=== PATIENT | female | born 1950 | race Caucasian/White ===

== ENCOUNTER 2017-01-16 15:03 | Emergency (ER) | payer MEDICARE, OTHER ==
--- NOTE | 2017-01-16 15:20 | ED ---
General Adult HPI - General Stated complaint: Chest pain Time Seen by Provider: 01/16/17 15:10 Source: RN notes reviewed, old records reviewed - History of Present Illness Initial comments: This is a 66-year-old female to the ER for evaluation of chest pain. 4 days of chest pain that this time without chest pain. Patient states she remains a symptomatically at this time. Patient has no cardiac risk factors no prior history of heart disease no high blood pressure not questionable diabetes or shortness of breath nonsmoker no prior cardiac evaluation in emergency room for chest pain. - Related Data Home Medications Medication Instructions Recorded Confirmed Aspirin 81 mg PO HS 03/23/14 01/16/17 OXcarbazepine 1,200 mg PO HS 03/23/14 01/16/17 LORazepam [Ativan] 0.5 mg PO BID@0800,1400 04/04/15 01/16/17 Omeprazole [PriLOSEC] 40 mg PO DAILY@1400 04/04/15 01/16/17 buPROPion XL [Wellbutrin Xl] 300 mg PO DAILY 04/04/15 01/16/17 traZODone HCL [Desyrel] 50 mg PO DAILY@1400 04/04/15 01/16/17 traZODone HCL [Desyrel] 100 mg PO HS 04/04/15 01/16/17 Citalopram Hydrobromide [CeleXA] 20 mg PO DAILY 01/16/17 01/16/17 Dicyclomine [Bentyl] 10 mg PO QID 01/16/17 01/16/17 Diphenox-Atrop 2.5-0.025 mg 1 tab PO QID 01/16/17 01/16/17 [Lomotil] Loratadine [Claritin] 10 mg PO HS 01/16/17 01/16/17 Allergies Allergy/AdvReac Type Severity Reaction Status Date / Time No Known Allergies Allergy Verified 01/16/17 15:44 Review of Systems ROS Statement: Those systems with pertinent positive or pertinent negative responses have been documented in the HPI. ROS Other: All systems not noted in ROS Statement are negative. Past Medical History Past Medical History: GERD/Reflux Additional Past Medical History / Comment(s): hypotension, History of Any Multi-Drug Resistant Organisms: None Reported Past Surgical History: Appendectomy, Hernia Repair Past Anesthesia/Blood Transfusion Reactions: No Reported Reaction Past Psychological History: Anxiety, Depression Smoking Status: Current every day smoker Past Alcohol Use History: None Reported Past Drug Use History: None Reported - Past Family History Father Family Medical History: Cancer Brother(s) Family Medical History: Cancer Sister(s) Family Medical History: Cancer General Exam General appearance: alert, in no apparent distress, anxious Head exam: Present: atraumatic, normocephalic, normal inspection Eye exam: Present: normal appearance, PERRL, EOMI. Absent: scleral icterus, conjunctival injection, periorbital swelling ENT exam: Present: normal exam, mucous membranes moist Neck exam: Present: normal inspection. Absent: tenderness, meningismus, lymphadenopathy Respiratory exam: Present: normal lung sounds bilaterally. Absent: respiratory distress, wheezes, rales, rhonchi, stridor Cardiovascular Exam: Present: regular rate, normal rhythm, normal heart sounds. Absent: systolic murmur, diastolic murmur, rubs, gallop, clicks GI/Abdominal exam: Present: soft, normal bowel sounds. Absent: distended, tenderness, guarding, rebound, rigid Extremities exam: Present: normal inspection, full ROM, normal capillary refill. Absent: tenderness, pedal edema, joint swelling, calf tenderness Back exam: Present: normal inspection Neurological exam: Present: alert, oriented X3, CN II-XII intact Psychiatric exam: Present: normal affect, normal mood Skin exam: Present: warm, dry, intact, normal color. Absent: rash Course Vital Signs 01/16/17 01/16/17 01/16/17 15:18 16:20 16:35 Temperature 99.0 F 97 F L Pulse Rate 77 67 66 Respiratory 16 18 20 Rate Blood Pressure 105/67 112/59 100/56 O2 Sat by Pulse 96 97 96 Oximetry - Reevaluation(s) Reevaluation #1: Patient remains without chest pain or shortness of breath EKG Findings - EKG Comments: EKG Findings:: EKG shows normal sinus rhythm rate of 75, OH 144, QRS 90, QTC 428 Medical Decision Making - Medical Decision Making 66 female the ER for evaluation nonspecific symptoms,, chest pain and off for 3 days, 3-4 days at this time isn't dramatic, level is normal EKG is negative and troponin is negative, patient will be discharged home - Lab Data Result diagrams: 01/16/17 15:16 01/16/17 15:16 Lab Results 01/16/17 01/16/17 01/16/17 Range/Units 15:16 15:16 15:16 WBC 9.2 (3.8-10.6) k/uL RBC 3.99 (3.80-5.40) m/uL Hgb 11.9 (11.4-16.0) gm/dL Hct 35.3 (34.0-46.0) % MCV 88.7 (80.0-100.0) fL MCH 29.9 (25.0-35.0) pg MCHC 33.8 (31.0-37.0) g/dL RDW 14.5 (11.5-15.5) % Plt Count 313 (150-450) k/uL Neutrophils % 77 % Lymphocytes % 12 % Monocytes % 7 % Eosinophils % 2 % Basophils % 0 % Neutrophils # 7.0 (1.3-7.7) k/uL Lymphocytes # 1.1 (1.0-4.8) k/uL Monocytes # 0.6 (0-1.0) k/uL Eosinophils # 0.1 (0-0.7) k/uL Basophils # 0.0 (0-0.2) k/uL PT (9.0-12.0) sec INR (<1.1) APTT (22.0-30.0) sec Sodium 127 L (137-145) mmol/L Potassium 4.3 (3.5-5.1) mmol/L Chloride 93 L (98-107) mmol/L Carbon Dioxide 23 (22-30) mmol/L Anion Gap 11 mmol/L BUN 13 (7-17) mg/dL Creatinine 0.70 (0.52-1.04) mg/dL Est GFR (MDRD) Af Amer >60 (>60 ml/min/1.73 sqM) Est GFR (MDRD) Non-Af >60 (>60 ml/min/1.73 sqM) Glucose 101 H (74-99) mg/dL Calcium 9.1 (8.4-10.2) mg/dL Magnesium 1.8 (1.6-2.3) mg/dL Total Bilirubin 0.4 (0.2-1.3) mg/dL AST 26 (14-36) U/L ALT 34 (9-52) U/L Alkaline Phosphatase 86 (38-126) U/L Total Creatine Kinase 107 (30-135) U/L CK-MB (CK-2) 1.2 (0.0-2.4) ng/mL CK-MB (CK-2) Rel Index 1.1 Troponin I <0.012 (0.000-0.034) ng/mL Total Protein 6.9 (6.3-8.2) g/dL Albumin 4.2 (3.5-5.0) g/dL Lipase 70 (23-300) U/L 01/16/17 Range/Units 15:16 WBC (3.8-10.6) k/uL RBC (3.80-5.40) m/uL Hgb (11.4-16.0) gm/dL Hct (34.0-46.0) % MCV (80.0-100.0) fL MCH (25.0-35.0) pg MCHC (31.0-37.0) g/dL RDW (11.5-15.5) % Plt Count (150-450) k/uL Neutrophils % % Lymphocytes % % Monocytes % % Eosinophils % % Basophils % % Neutrophils # (1.3-7.7) k/uL Lymphocytes # (1.0-4.8) k/uL Monocytes # (0-1.0) k/uL Eosinophils # (0-0.7) k/uL Basophils # (0-0.2) k/uL PT 10.4 (9.0-12.0) sec INR 1.0 (<1.1) APTT 22.3 (22.0-30.0) sec Sodium (137-145) mmol/L Potassium (3.5-5.1) mmol/L Chloride (98-107) mmol/L Carbon Dioxide (22-30) mmol/L Anion Gap mmol/L BUN (7-17) mg/dL Creatinine (0.52-1.04) mg/dL Est GFR (MDRD) Af Amer (>60 ml/min/1.73 sqM) Est GFR (MDRD) Non-Af (>60 ml/min/1.73 sqM) Glucose (74-99) mg/dL Calcium (8.4-10.2) mg/dL Magnesium (1.6-2.3) mg/dL Total Bilirubin (0.2-1.3) mg/dL AST (14-36) U/L ALT (9-52) U/L Alkaline Phosphatase (38-126) U/L Total Creatine Kinase (30-135) U/L CK-MB (CK-2) (0.0-2.4) ng/mL CK-MB (CK-2) Rel Index Troponin I (0.000-0.034) ng/mL Total Protein (6.3-8.2) g/dL Albumin (3.5-5.0) g/dL Lipase (23-300) U/L - Radiology Data Radiology results: report reviewed (Chest x-ray is negative for acute disease), image reviewed Disposition Clinical Impression: Chest pain, Atypical chest pain Disposition: HOME SELF-CARE Condition: Good Instructions: Chest Pain (ED) Referrals: Carmina Mishra MD [Primary Care Provider] - 1-2 days Praveena Aiken MD [STAFF PHYSICIAN] - 1-2 days
[2017-01-16 15:35] LABS: Basophils % (A) 0 %; CH 30.4; CHCM 34.5; Eosinophils # (A) 0.1 k/uL (0-0.7); Eosinophils % (A) 2 %; HCT 35.3 % (34.0-46.0); HDW 2.35; HGB 11.9 gm/dL (11.4-16.0); Luc # (Auto) 0.27; Luc % (Auto) 3; Lymphocytes # (A) 1.1 k/uL (1.0-4.8); Lymphocytes % (A) 12 %; MCH 29.9 pg (25.0-35.0); MCHC 33.8 g/dL (31.0-37.0); MCV 88.7 fL (80.0-100.0); Mean Platelet Volume 7.1; Monocytes # (A) 0.6 k/uL (0-1.0); Monocytes % (A) 7 %; Neutrophils % (A) 77 %; RBC 3.99 m/uL (3.80-5.40); RDW 14.5 % (11.5-15.5); WBC 9.2 k/uL (3.8-10.6); WBC (Perox) 9.81
--- NOTE | 2017-01-16 15:39 | XR ---
EXAMINATION TYPE: XR chest 2V DATE OF EXAM: 01/16/2017 3:29 PM CLINICAL HISTORY: Chest pain today. TECHNIQUE: Frontal and lateral views of the chest are obtained. COMPARISON: Prior chest x-ray September 14, 2014. FINDINGS: There is chronic parenchymal change with new small right pleural effusion. There is associ ated patchy right basilar atelectasis. No pneumothorax is seen bilaterally. Elevated left hemidiaphra gm is redemonstrated. The cardiac silhouette size is mildly enlarged on current study. The osseous structures are demineralized. Exaggerated thoracic kyphosis is present. Old fracture posterior right seventh rib is redemonstrated. IMPRESSION: Chronic changes and mild cardiomegaly with new small right pleural effusion and associate d patchy right basilar atelectasis.
[2017-01-16 15:45] LABS: ALT 34 U/L (9-52); AST 26 U/L (14-36); Alkaline Phosphatase 86 U/L (38-126); Anion Gap 11 mmol/L; Blood Urea Nitrogen 13 mg/dL (7-17); Calcium 9.1 mg/dL (8.4-10.2); Carbon Dioxide 23 mmol/L (22-30); Chloride 93 mmol/L (98-107); Glucose 101 mg/dL (74-99); Magnesium 1.8 mg/dL (1.6-2.3); Non-African American GFR(MDRD) >60 (>60 ml/min/1.73 sqM); Potassium 4.3 mmol/L (3.5-5.1); Prothrombin Time 10.4 sec (9.0-12.0); Sodium 127 mmol/L (137-145); Total Bilirubin 0.4 mg/dL (0.2-1.3); Total Protein 6.9 g/dL (6.3-8.2)
[2017-01-16 15:46] LABS: Partial Thromboplastin Time 22.3 sec (22.0-30.0)
[2017-01-16 16:08] LABS: Creatine Kinase 107 U/L (30-135)
[2017-01-16 16:21] LABS: Creatine Kinase MB 1.2 ng/mL (0.0-2.4); Troponin I <0.012 ng/mL (0.000-0.034)
[2017-01-16 16:36] VITALS: BP 100/56; PULSE 66; RESP 20; TEMP 97
== END 2017-01-16 16:41 | disposition home or self-care (01) ==
LOC: EC 15:03
DX: R07.89 Other chest pain (principal); K21.9 Gastro-esophageal reflux disease without esophagitis; F41.9 Anxiety disorder, unspecified; F32.9 Major depressive disorder, single episode, unspecified; F17.200 Nicotine dependence, unspecified, uncomplicated; Z79.82 Long term (current) use of aspirin; Z79.899 Other long term (current) drug therapy
CPT/HCPCS: 36415; 71020; 80053; 82550; 82553; 83690; 83735; 84484; 85025; 85610; 85730; 93005; 99285

== ENCOUNTER → 2017-03-06 | Outpatient (CLI) | payer MEDICARE, OTHER ==
[2017-03-06 14:41] LABS: Basophils % (A) 0 %; CH 30.5; Eosinophils # (A) 0.1 k/uL (0-0.7); Eosinophils % (A) 3 %; HDW 2.31; Luc % (Auto) 3; Lymphocytes % (A) 24 %; MCH 29.9 pg (25.0-35.0); MCHC 34.2 g/dL (31.0-37.0); MCV 87.5 fL (80.0-100.0); Mean Platelet Volume 6.6; Monocytes # (A) 0.5 k/uL (0-1.0); Monocytes % (A) 13 %; Neutrophils # (A) 2.2 k/uL (1.3-7.7); Neutrophils % (A) 57 %; RBC 3.99 m/uL (3.80-5.40); RDW 14.3 % (11.5-15.5); WBC (Perox) 3.83
[2017-03-06 15:06] LABS: ALT 29 U/L (9-52); AST 24 U/L (14-36); Alkaline Phosphatase 101 U/L (38-126); Blood Urea Nitrogen 9 mg/dL (7-17); Calcium 8.8 mg/dL (8.4-10.2); Carbon Dioxide 26 mmol/L (22-30); Chloride 87 mmol/L (98-107); Cholesterol 184 mg/dL (<200); Glucose 82 mg/dL (74-99); HDL Cholesterol 81 mg/dL (40-60); Non-African American GFR(MDRD) >60 (>60 ml/min/1.73 sqM); Potassium 4.7 mmol/L (3.5-5.1); Total Bilirubin 0.4 mg/dL (0.2-1.3); Total Protein 6.8 g/dL (6.3-8.2); Triglycerides 59 mg/dL (<150)
[2017-03-06 15:07] LABS: Anion Gap 7 mmol/L
[2017-03-06 15:15] LABS: Sodium 120 mmol/L (137-145)
[2017-03-07 14:45] LABS: Gliadin AB IgA, Deaminated 3 UNITS (<20); Gliadin AB IgG, Deaminated 2 UNITS (<20)
== END | disposition home or self-care (01) ==
LOC: LABWHC1 13:03
PROVIDERS: ATTEND Internal Medicine Gastroenterology
DX: Z00.00 Encounter for general adult medical examination without abnormal findings (principal); K52.9 Noninfective gastroenteritis and colitis, unspecified
CPT/HCPCS: 36415; 80053; 80061; 83516; 84443; 85025

== ENCOUNTER 2017-03-07 16:41 | Observation (INO) | payer MEDICARE, OTHER ==
[2017-03-07] MEDS ORDERED: SODIUM CHLORIDE 0.9% 1,000 ML IV ONE (16:58)
--- NOTE | 2017-03-07 17:15 | ED ---
Recheck HPI - General Chief Complaint: Recheck/Abnormal Lab/Rx Stated Complaint: Abnormal Labs Time Seen by Provider: 03/07/17 16:56 Source: patient, RN notes reviewed Mode of arrival: ambulatory Limitations: no limitations - History of Present Illness Initial Comments: This is a pleasant 66-year-old female with chief complaint of feeling weak. She had labs yesterday by her GI specialist. They called her and told her that she needed to be seen. She had a low sodium of 120. Patient reports that she' s had this happen in the past. She states that she is getting over pneumonia and does have a mild cough at this time. Patient reports that overall she just generally feels tired. Patient states she has no chest pain, shortness of breath, nausea or vomiting. She reports she does have IBS, and reports intermittent abdominal cramping with diarrhea. She states she hasn't had anything recently.Patient denies any recent fever, chills, shortness of breath, chest pain, back pain, abdominal pain, nausea vomiting, numbness or tingling, dysuria or hematuria, constipation or diarrhea, headaches or visual changes, or any other current symptoms - Related Data Home Medications Medication Instructions Recorded Confirmed OXcarbazepine 1,200 mg PO HS 03/23/14 03/07/17 LORazepam [Ativan] 0.5 mg PO BID@0800,1400 04/04/15 03/07/17 Omeprazole [PriLOSEC] 40 mg PO DAILY@1400 04/04/15 03/07/17 buPROPion XL [Wellbutrin Xl] 300 mg PO DAILY 04/04/15 03/07/17 traZODone HCL [Desyrel] 100 mg PO HS 04/04/15 03/07/17 Citalopram Hydrobromide [CeleXA] 20 mg PO DAILY 01/16/17 03/07/17 Dicyclomine [Bentyl] 10 mg PO [facility] 01/16/17 03/07/17 Diphenox-Atrop 2.5-0.025 mg 1 tab PO [facility] 01/16/17 03/07/17 [Lomotil] Loratadine [Claritin] 10 mg PO HS 01/16/17 03/07/17 Aspirin EC [Ecotrin Low Dose] 81 mg PO 03/07/17 03/07/17 Multivitamins, Thera [Multivitamin 1 tab PO DAILY 03/07/17 03/07/17 (formulary)] traZODone HCL 50 mg PO DAILY@1400 03/07/17 03/07/17 Allergies Allergy/AdvReac Type Severity Reaction Status Date / Time No Known Allergies Allergy Verified 03/07/17 17:51 Review of Systems ROS Statement: Those systems with pertinent positive or pertinent negative responses have been documented in the HPI. ROS Other: All systems not noted in ROS Statement are negative. Past Medical History Past Medical History: GERD/Reflux Additional Past Medical History / Comment(s): hypotension, History of Any Multi-Drug Resistant Organisms: None Reported Past Surgical History: Appendectomy, Hernia Repair Past Anesthesia/Blood Transfusion Reactions: No Reported Reaction Past Psychological History: Anxiety, Depression Smoking Status: Current every day smoker Past Alcohol Use History: None Reported Past Drug Use History: None Reported - Past Family History Father Family Medical History: Cancer Brother(s) Family Medical History: Cancer Sister(s) Family Medical History: Cancer Mother Family Medical History: Dementia, Diabetes Mellitus, Osteoarthritis (OA), Thyroid Disorder General Exam - General Exam Comments Initial Comments: This is a pleasant 66-year-old female. No acute distress. Limitations: no limitations General appearance: alert, in no apparent distress Head exam: Present: atraumatic, normocephalic, normal inspection Eye exam: Present: normal appearance, PERRL, EOMI. Absent: scleral icterus, conjunctival injection, periorbital swelling ENT exam: Present: normal exam, mucous membranes moist Neck exam: Present: normal inspection. Absent: tenderness, meningismus, lymphadenopathy Respiratory exam: Present: normal lung sounds bilaterally. Absent: respiratory distress, wheezes, rales, rhonchi, stridor Cardiovascular Exam: Present: regular rate, normal rhythm, normal heart sounds. Absent: systolic murmur, diastolic murmur, rubs, gallop, clicks GI/Abdominal exam: Present: soft, normal bowel sounds. Absent: distended, tenderness, guarding, rebound, rigid Extremities exam: Present: normal inspection, full ROM, normal capillary refill. Absent: tenderness, pedal edema, joint swelling, calf tenderness Back exam: Present: normal inspection Neurological exam: Present: alert, oriented X3, CN II-XII intact Psychiatric exam: Present: normal affect, normal mood Skin exam: Present: warm, dry, intact, normal color. Absent: rash Course Vital Signs 03/07/17 03/07/17 16:43 19:21 Temperature 98.1 F 98.0 F Pulse Rate 64 74 Respiratory 18 18 Rate Blood Pressure 104/55 97/50 O2 Sat by Pulse 96 95 Oximetry Medical Decision Making - Medical Decision Making This is a pleasant 66-year-old female presenting to emergency Department with abnormal labs with hyponatremia with sodium of 120 yesterday. Patient was given IV normal saline 1 L bolus and started on 150ml/ hrs. Patient will be admitted at this time for IV rehydration. Patient reports that this has been an issue for her in the past. She states that she is recently getting over pneumonia. She states she has a mild cough but feels much better at this time. Chest x-ray also obtained, negative for any acute process. Patient agrees to admission. We'll consult Dr. Peña due to patient's reoccurring hyponatremia. - Lab Data Result diagrams: 03/07/17 17:25 03/07/17 17:25 Lab Results 03/07/17 03/07/17 Range/Units 17:25 17:25 WBC 4.8 (3.8-10.6) k/uL RBC 4.17 (3.80-5.40) m/uL Hgb 12.4 (11.4-16.0) gm/dL Hct 36.9 (34.0-46.0) % MCV 88.5 (80.0-100.0) fL MCH 29.7 (25.0-35.0) pg MCHC 33.6 (31.0-37.0) g/dL RDW 14.4 (11.5-15.5) % Plt Count 337 (150-450) k/uL Neutrophils % 56 % Lymphocytes % 23 % Monocytes % 14 % Eosinophils % 3 % Basophils % 1 % Neutrophils # 2.7 (1.3-7.7) k/uL Lymphocytes # 1.1 (1.0-4.8) k/uL Monocytes # 0.7 (0-1.0) k/uL Eosinophils # 0.1 (0-0.7) k/uL Basophils # 0.1 (0-0.2) k/uL Sodium 120 L* (137-145) mmol/L Potassium 4.6 (3.5-5.1) mmol/L Chloride 88 L (98-107) mmol/L Carbon Dioxide 26 (22-30) mmol/L Anion Gap 6 mmol/L BUN 9 (7-17) mg/dL Creatinine 0.56 (0.52-1.04) mg/dL Est GFR (MDRD) Af Amer >60 (>60 ml/min/1.73 sqM) Est GFR (MDRD) Non-Af >60 (>60 ml/min/1.73 sqM) Glucose 86 (74-99) mg/dL Calcium 8.7 (8.4-10.2) mg/dL Magnesium 1.9 (1.6-2.3) mg/dL Total Bilirubin 0.5 (0.2-1.3) mg/dL AST 37 H (14-36) U/L ALT 30 (9-52) U/L Alkaline Phosphatase 111 (38-126) U/L Total Protein 7.5 (6.3-8.2) g/dL Albumin 4.2 (3.5-5.0) g/dL - Radiology Data Radiology results: report reviewed Chest x-ray shows stable exam. No acute abdomen or maladies evident. Disposition Clinical Impression: Hyponatremia, Fatigue Disposition: ADMITTED IP TO THIS [facility] Condition: Stable Time of Disposition: 18:38
[2017-03-07] MEDS: SODIUM CHLORIDE 0.9% 1,000 ML IV SCH (17:24)
[2017-03-07 17:34] LABS: Basophils # (A) 0.1 k/uL (0-0.2); Basophils % (A) 1 %; CH 30.4; CHCM 34.5; Eosinophils # (A) 0.1 k/uL (0-0.7); Eosinophils % (A) 3 %; HCT 36.9 % (34.0-46.0); HDW 2.24; HGB 12.4 gm/dL (11.4-16.0); Luc # (Auto) 0.16; Luc % (Auto) 3; Lymphocytes # (A) 1.1 k/uL (1.0-4.8); Lymphocytes % (A) 23 %; MCH 29.7 pg (25.0-35.0); MCHC 33.6 g/dL (31.0-37.0); MCV 88.5 fL (80.0-100.0); Mean Platelet Volume 6.1; Monocytes # (A) 0.7 k/uL (0-1.0); Monocytes % (A) 14 %; Neutrophils # (A) 2.7 k/uL (1.3-7.7); Neutrophils % (A) 56 %; RBC 4.17 m/uL (3.80-5.40); RDW 14.4 % (11.5-15.5); WBC 4.8 k/uL (3.8-10.6); WBC (Perox) 4.84
--- NOTE | 2017-03-07 18:04 | XR ---
EXAMINATION TYPE: XR chest 2V DATE OF EXAM: 03/07/2017 5:45 PM COMPARISON: Prior chest x-ray 16 January 2017 HISTORY: Pain, hyponatremia TECHNIQUE: Frontal and lateral views of the chest are obtained. FINDINGS: There is no focal air space opacity, pleural effusion, or pneumothorax seen. The cardiac silhouette size is stable and likely enlarged, patient is rotated. Prominent lung volumes suggest u nderlying COPD. Bone mineralization is reduced. The osseous structures are intact. There are old heal ed rib fractures as on prior exam. The aorta is dense. IMPRESSION: Stable exam, no acute abnormalities evident.
[2017-03-07 18:17] LABS: ALT 30 U/L (9-52); AST 37 U/L (14-36); Alkaline Phosphatase 111 U/L (38-126); Anion Gap 6 mmol/L; Blood Urea Nitrogen 9 mg/dL (7-17); Calcium 8.7 mg/dL (8.4-10.2); Carbon Dioxide 26 mmol/L (22-30); Chloride 88 mmol/L (98-107); Glucose 86 mg/dL (74-99); Magnesium 1.9 mg/dL (1.6-2.3); Non-African American GFR(MDRD) >60 (>60 ml/min/1.73 sqM); Potassium 4.6 mmol/L (3.5-5.1); Total Bilirubin 0.5 mg/dL (0.2-1.3); Total Protein 7.5 g/dL (6.3-8.2)
[2017-03-07 18:20] LABS: Sodium 120 mmol/L (137-145)
[2017-03-07] MEDS ORDERED: NALOXONE 0.4 MG/ML 1 ML VIAL IV PRN (18:38)
[2017-03-07] MEDS ORDERED: KETOROLAC 30 MG/ML 1 ML VIAL IVP PRN (18:38)
[2017-03-07] MEDS ORDERED: IBUPROFEN 400 MG TAB PO PRN (18:38)
[2017-03-07] MEDS ORDERED: traZODone HCL 100 MG TAB PO SCH (21:15)
[2017-03-07] MEDS ORDERED: OXcarbazepine 300 MG TAB PO SCH (21:15)
[2017-03-07] MEDS ORDERED: ASPIRIN 81 MG CHEW PO SCH (21:15)
[2017-03-07] MEDS ORDERED: LORATADINE 10 MG TAB PO SCH (21:15)
[2017-03-07] MEDS: DICYCLOMINE 10 MG CAP PO SCH (21:46)
[2017-03-07] MEDS: DIPHENOX-ATROP 2.5-0.025 MG 1 EACH TAB PO SCH (21:46)
[2017-03-08 07:20] LABS: Anion Gap 5 mmol/L; Blood Urea Nitrogen 6 mg/dL (7-17); Carbon Dioxide 23 mmol/L (22-30); Chloride 101 mmol/L (98-107); Glucose 75 mg/dL (74-99); Non-African American GFR(MDRD) >60 (>60 ml/min/1.73 sqM); Potassium 4.5 mmol/L (3.5-5.1); Sodium 129 mmol/L (137-145)
[2017-03-08] MEDS: DIPHENOX-ATROP 2.5-0.025 MG 1 EACH TAB PO SCH ×2 (08:33→11:54)
[2017-03-08] MEDS: LORazepam 0.5 MG TAB PO SCH ×2 (08:33→14:13)
[2017-03-08] MEDS: DICYCLOMINE 10 MG CAP PO SCH ×2 (08:33→11:54)
[2017-03-08] MEDS: SODIUM CHLORIDE 0.9% 1,000 ML IV SCH ×2 (08:48→09:05)
[2017-03-08] MEDS ORDERED: SODIUM CHLORIDE 0.45% 1,000 ML IV SCH (10:15)
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
[2017-03-08 10:47] LABS: Uric Acid 1.5 mg/dL (3.7-7.4)
[2017-03-08] MEDS ORDERED: PANTOPRAZOLE 40 MG TABLET PO SCH (12:00)
[2017-03-08 14:31] LABS: Anion Gap 3 mmol/L; Blood Urea Nitrogen 7 mg/dL (7-17); Calcium 8.2 mg/dL (8.4-10.2); Carbon Dioxide 25 mmol/L (22-30); Chloride 101 mmol/L (98-107); Glucose 82 mg/dL (74-99); Non-African American GFR(MDRD) >60 (>60 ml/min/1.73 sqM); Potassium 4.4 mmol/L (3.5-5.1); Sodium 129 mmol/L (137-145)
[2017-03-08 16:01] VITALS: BP 118/64; PULSE 70; RESP 14; TEMP 98.2
--- NOTE | 2017-03-08 18:14 | HP ---
DATE OF ADMISSION: This dictation is both HISTORY AND PHYSICAL AND DISCHARGE SUMMARY. This patient is a very pleasant 66-year-old female who was sent in from primary care physician's clinic with hyponatremia. The patient's only symptoms are generalized weakness, which improved at this point of time. Patient was given IV fluids. Within 12 hours, patient's sodium went from 120 to 129 because of which Nephrology was consulted and patient was started on half-normal saline to avoid any complications like ( ) and patient wanted to be discharged today because of which I repeated sodium again which remains at 129. Patient is on 3 to 4 medications that can cause SIADH. Patient denied any nausea, vomiting, diarrhea. Patient appears to have hypovolemic hyponatremia, improved with IV fluids. Patient is on Celexa, trazodone, Trileptal and even anticholinergics like loratadine does have some anticholinergic properties including Bentyl and dicyclomine. Bentyl with anticholinergic properties can cause SIADH. As the patient improved with IV fluids, we believe it is secondary to hypovolemic hyponatremia and patient drinks about 3 cups of coffee and that may have contributed to her symptoms. I asked her to drink only one cup of coffee. Ideally the patient needs to stay one more day, as patient is insisting will go ahead and discharge the patient with repeat electrolytes and results to be faxed Dr. Anthony's clinic and PCP's clinic. Patient will follow with Dr. Anthony in 2 weeks. Patient has good urine output at this point of time. Patient denied any excessive fluid intake. Creatinine is at her baseline. REVIEW OF SYSTEMS: GENERAL: As described in HPI. HEENT: No recent visual problems or hearing problems. Denied any sore throat. CARDIOVASCULAR: No chest pain, orthopnea, PND, no palpitations, no syncope. PULMONARY: No shortness of breath, no cough, no hemoptysis. GASTROINTESTINAL: No diarrhea, no nausea, no vomiting, no abdominal pain. Normoactive bowel sounds. NEUROLOGICAL: No headaches, no weakness, no numbness. HEMATOLOGICAL: Denies any bleeding or petechiae. GENITOURINARY: Denies any burning micturition, frequency, or urgency. MUSCULOSKELETAL/RHEUMATOLOGICAL: Denies any joint pain, swelling, or any muscle pain. ENDOCRINE: Denies any polyuria or polydipsia. The rest of the 14 point review of systems is negative. PAST MEDICAL HISTORY: Significant for gastroesophageal reflux disease, hypotension, appendectomy, hernia repair and anxiety, depression. SOCIAL HISTORY: The patient smokes about 1 pack per day. Denied any alcohol abuse or any drug abuse. Quit alcohol about 3 to 4 years ago. FAMILY HISTORY: Mother had dementia, diabetes mellitus, osteoarthritis, hypothyroidism. Father had cancer. Brother had cancer. Sister had cancer. Nature of cancers unknown. Home medications include: 1. Oxcarbazepine. 2. Lorazepam . 3. Omeprazole. 4. Bupropion. 5. Trazodone. 6. Citalopram. 7. Dicyclomine. 8. Diphenoxylate atropine. 9. Loratadine. 10. Multivitamin. ALLERGIES: No known drug allergies. PHYSICAL EXAMINATION: Temperature 98.4, pulse of 61, respiratory rate of 16, blood pressure is 98/43, saturating at 95% on room air. GENERAL: The patient is alert and oriented x3, not in any acute distress. Well developed, well nourished. HEENT: Pupils are round and equally reacting to light. EOMI. No scleral icterus. No conjunctival pallor. Normocephalic, atraumatic. No pharyngeal erythema. No thyromegaly. CARDIOVASCULAR: S1 and S2 present. No murmurs, rubs, or gallops. PULMONARY: Chest is clear to auscultation, no wheezing or crackles. ABDOMEN: Soft, nontender, nondistended, normoactive bowel sounds. No palpable organomegaly. MUSCULOSKELETAL: No joint swelling or deformity. EXTREMITIES: No cyanosis, clubbing, or pedal edema. NEUROLOGICAL: Gross neurological examination did not reveal any focal deficits. SKIN: No rashes. LABORATORY DATA: CBC, CMP are abnormal for low sodium 120, which has come up to 129 and the repeat one is 129. The TSH, cortisol level essentially within normal limits. ASSESSMENT AND PLAN: 1. Possible hypovolemic hyponatremia and patient is on above mentioned medications that can cause syndrome of inappropriate antidiuretic hormone secretion, but patient mostly has hypovolemic hyponatremia for which patient was given IV fluids and patient will be discharged today with repeat electrolytes and cut down on caffeine. 2. Depression. 3. Hypotension chronically without any kidney problems without with any end-organ damage. Patient will be discharged today to follow with Dr. Carmina Mishra in 3 to [address] Anthony in one week. Repeat basic metabolic profile in about 3 days. This dictation is both H&P and discharge summary.
[2017-03-09] MEDS ORDERED: buPROPion XL 300 MG TAB.ER.24H PO SCH (09:00)
[2017-03-09] MEDS ORDERED: CITALOPRAM HYDROBROMIDE 20 MG TAB PO SCH (09:00)
== END 2017-03-08 15:30 | disposition home or self-care (01) ==
LOC: EC 16:41 → 3OBS 18:02
PROVIDERS: ADMIT Hospitalist; ATTEND Hospitalist
DX: E87.1 Hypo-osmolality and hyponatremia (principal); E86.1 Hypovolemia; K21.9 Gastro-esophageal reflux disease without esophagitis; R05 Cough; I95.9 Hypotension, unspecified; F41.9 Anxiety disorder, unspecified; F32.9 Major depressive disorder, single episode, unspecified; F17.200 Nicotine dependence, unspecified, uncomplicated; Z83.3 Family history of diabetes mellitus; K58.9 Irritable bowel syndrome, unspecified; Z79.82 Long term (current) use of aspirin; Z79.899 Other long term (current) drug therapy
CPT/HCPCS: 96361 ×2; 96360; 99284; 36415; 84300; 83930; 80053; 80048; 84443; 82533; 83735; 84550; 85025; 83935; 71020; G0378 ×2

== ENCOUNTER → 2017-03-11 | Outpatient (CLI) | payer MEDICARE, OTHER ==
[2017-03-11 12:52] LABS: Anion Gap 7 mmol/L; Blood Urea Nitrogen 8 mg/dL (7-17); Carbon Dioxide 26 mmol/L (22-30); Chloride 91 mmol/L (98-107); Glucose 86 mg/dL (74-99); Non-African American GFR(MDRD) >60 (>60 ml/min/1.73 sqM); Potassium 4.4 mmol/L (3.5-5.1); Sodium 124 mmol/L (137-145)
== END | disposition home or self-care (01) ==
LOC: LABWHC1 11:57
PROVIDERS: ATTEND Internal Medicine
DX: E87.1 Hypo-osmolality and hyponatremia (principal)
CPT/HCPCS: 36415; 80048

== ENCOUNTER → 2017-03-20 | Outpatient (CLI) | payer MEDICARE, OTHER ==
[2017-03-20 14:43] LABS: Chloride 88 mmol/L (98-107); Glucose 94 mg/dL (74-99)
[2017-03-20 14:44] LABS: Anion Gap 10 mmol/L; Blood Urea Nitrogen 7 mg/dL (7-17); Calcium 9.1 mg/dL (8.4-10.2); Carbon Dioxide 23 mmol/L (22-30); Non-African American GFR(MDRD) >60 (>60 ml/min/1.73 sqM); Potassium 4.1 mmol/L (3.5-5.1); Sodium 121 mmol/L (137-145)
== END | disposition home or self-care (01) ==
LOC: LABWHC1 14:07
PROVIDERS: ATTEND Family Medicine
DX: E87.1 Hypo-osmolality and hyponatremia (principal)
CPT/HCPCS: 36415; 80048

== ENCOUNTER 2017-03-21 20:33 | Inpatient (IN) | payer MEDICARE, OTHER ==
[2017-03-21] MEDS ORDERED: SODIUM CHLORIDE 0.9% 1,000 ML IV ONE (23:35)
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
[2017-03-22 00:22] LABS: Basophils % (A) 0 %; CH 30.6; CHCM 35.1; Eosinophils # (A) 0.2 k/uL (0-0.7); Eosinophils % (A) 3 %; HCT 33.4 % (34.0-46.0); HDW 2.46; Luc % (Auto) 1; Lymphocytes # (A) 1.5 k/uL (1.0-4.8); Lymphocytes % (A) 18 %; MCH 31.4 pg (25.0-35.0); MCHC 35.9 g/dL (31.0-37.0); MCV 87.5 fL (80.0-100.0); Monocytes # (A) 0.6 k/uL (0-1.0); Monocytes % (A) 8 %; Neutrophils # (A) 5.7 k/uL (1.3-7.7); Neutrophils % (A) 70 %; RBC 3.82 m/uL (3.80-5.40); RDW 14.1 % (11.5-15.5); WBC 8.1 k/uL (3.8-10.6); WBC (Perox) 7.79
[2017-03-22 01:28] LABS: Anion Gap 7 mmol/L; Calcium 7.9 mg/dL (8.4-10.2); Carbon Dioxide 19 mmol/L (22-30); Chloride 101 mmol/L (98-107); Glucose 77 mg/dL (74-99); Non-African American GFR(MDRD) >60 (>60 ml/min/1.73 sqM); Sodium 127 mmol/L (137-145); Total Bilirubin 0.4 mg/dL (0.2-1.3)
[2017-03-22 01:30] LABS: ALT 27 U/L (9-52); AST 33 U/L (14-36); Blood Urea Nitrogen 8 mg/dL (7-17); Potassium 4.5 mmol/L (3.5-5.1); Total Protein 5.8 g/dL (6.3-8.2)
[2017-03-22 01:31] LABS: Alkaline Phosphatase 87 U/L (38-126)
[2017-03-22] MEDS ORDERED: ACETAMINOPHEN TAB 325 MG TAB PO PRN (02:02)
[2017-03-22] MEDS ORDERED: MORPHINE SULFATE 4 MG/ML SYRINGE IV PRN (02:02)
[2017-03-22] MEDS ORDERED: ONDANSETRON 4 MG/2 ML VIAL IVP PRN (02:02)
[2017-03-22] MEDS ORDERED: NALOXONE 0.4 MG/ML 1 ML VIAL IV PRN (02:02)
[2017-03-22] MEDS ORDERED: HYDROcodone/APAP 5-325MG 1 EACH TAB PO PRN (02:02)
[2017-03-22 08:08] VITALS: BMI 21.1
[2017-03-22] MEDS: SODIUM CHLORIDE 0.9% 1,000 ML IV SCH ×3 (10:48→19:57)
[2017-03-22] MEDS: LORazepam 0.5 MG TAB PO SCH (14:51)
[2017-03-22 15:04] LABS: ALT 29 U/L (9-52); AST 20 U/L (14-36); Alkaline Phosphatase 80 U/L (38-126); Anion Gap 4 mmol/L; Blood Urea Nitrogen 5 mg/dL (7-17); Calcium 8.5 mg/dL (8.4-10.2); Carbon Dioxide 27 mmol/L (22-30); Chloride 104 mmol/L (98-107); Glucose 61 mg/dL (74-99); Non-African American GFR(MDRD) >60 (>60 ml/min/1.73 sqM); Potassium 4.3 mmol/L (3.5-5.1); Sodium 135 mmol/L (137-145); Total Bilirubin 0.3 mg/dL (0.2-1.3); Total Protein 5.8 g/dL (6.3-8.2)
[2017-03-22] MEDS: DIPHENOX-ATROP 2.5-0.025 MG 1 EACH TAB PO SCH ×2 (18:57→19:57)
[2017-03-22] MEDS: DICYCLOMINE 10 MG CAP PO SCH (19:56)
[2017-03-22] MEDS ORDERED: OXcarbazepine 300 MG TAB PO SCH (21:00)
[2017-03-22] MEDS ORDERED: ASPIRIN 81 MG CHEW PO SCH (21:00)
[2017-03-22] MEDS ORDERED: traZODone HCL 100 MG TAB PO SCH (21:00)
--- NOTE | 2017-03-22 23:15 | HP ---
DATE OF SERVICE: 03/22/2017 CHIEF COMPLAINT: Sent from PCP's office for hyponatremia. HISTORY OF PRESENT ILLNESS: Ms. Love is a 66-year-old female with a past medical history of GERD, tremors, bipolar disorder, who was sent in from her PCP's office, as she was found to have hyponatremia. Patient states that she has been feeling off balance and fatigued for the past 2 to 3 weeks, but she denied having any falls, denies having any loss of consciousness, headaches. She denies having any difficulty in breathing. No complaints of nausea, vomiting, abdominal pain, diarrhea or constipation. Except for fatigue and gait disturbance, she does not per se have any complaints. Systems of all 13 review of systems are done and negative except for the ones mentioned in the HPI. Past medical history is significant for GERD, bipolar disorder. ALLERGIES: No known drug allergies. Patient's home medications: 1. Oxcarbazepine 1200mg p.o. QHS 2. Omeprazole 40 mg p.o. daily. 3. Bupropion 300 mg p.o. daily. 4. Citalopram 20 mg p.o. daily. 5. Lomotil 1 tablet a.c. and q.h.s. p.r.n. for diarrhea. 6. Aspirin 81 mg p.o. daily. 7. Multivitamin 1 tablet p.o. daily. PAST SURGICAL HISTORY: Appendectomy and hernia repair. SOCIAL HISTORY: Current every day smoker. Occasional alcohol use. No intravenous drug abuse. FAMILY HISTORY: Positive for dementia and osteoarthritis, thyroid disorder in her mother and cancer in her brother and sister. On examination, patient's vital signs: Temperature 98.0 , heart rate 65, respiratory rate 16, blood pressure 105/60, saturating at 95% on room air. GENERAL: Patient appears to be in no acute distress. Resting tremors. HEAD: Atraumatic, nontraumatic. EYES: Pupils round and reactive to light. NECK: No JVD. No thyromegaly. CARDIOVASCULAR: S1, S2 heard. LUNGS: Breath sounds are positive with crackles. GI: Abdomen is soft, nontender. Bowel sounds positive. EXTREMITIES: No edema. No cyanosis. No clubbing. Peripheral pulses are felt. SOCIAL MEDIA ASSISTANT: Alert, awake and oriented x3. No focal neurologic deficits. She has resting tremors. PSYCHIATRIC: Appropriate mood and affect. SKIN: No rash. LABS: White count of 8.1, hemoglobin is 12, platelets of 336. Sodium is 127. Repeat is 135 after IV for hydration. Potassium 4.6, chloride 104, bicarb 27, BUN 5, creatinine 0.53. Albumin is 3.4 and total protein of 6.0 ASSESSMENT AND PLAN: 1. Hyponatremia, most likely drug-induced. The patient is on oxcarbazepine, which is known to cause hyponatremia, so it will be discontinued. I had a lengthy discussion with her daughter, who was at the bedside. She states that the medication is for her tremors and if she does not take it, her tremors are pretty bad, but I explained to her it might be the reason for her hyponatremia and we will find another alternative. 2. Resting tremors. 3. Gastroesophageal reflux disease. 4. Bipolar disorder. 5. Anxiety with depression. 6. Nicotine dependence. PLAN: The plan is to discontinue the patient off oxcarbazepine and continue with IV hydration. Sodium is improving from 127 to 135. Patient is also stating that her symptom of gait imbalance is getting better. Will continue the rest of her home medications and further recommendations depending on the progress of the patient. MARTINE
[2017-03-23] MEDS: SODIUM CHLORIDE 0.9% 1,000 ML IV SCH ×2 (03:40→08:06)
[2017-03-23 07:19] LABS: Basophils % (A) 0 %; CH 29.8; CHCM 33.1; Eosinophils # (A) 0.1 k/uL (0-0.7); Eosinophils % (A) 2 %; HCT 34.3 % (34.0-46.0); HDW 2.47; HGB 11.4 gm/dL (11.4-16.0); Luc # (Auto) 0.06; Luc % (Auto) 2; Lymphocytes # (A) 0.9 k/uL (1.0-4.8); Lymphocytes % (A) 23 %; MCHC 33.1 g/dL (31.0-37.0); MCV 90.5 fL (80.0-100.0); Mean Platelet Volume 6.7; Monocytes # (A) 0.4 k/uL (0-1.0); Monocytes % (A) 10 %; Neutrophils # (A) 2.4 k/uL (1.3-7.7); Neutrophils % (A) 63 %; RBC 3.79 m/uL (3.80-5.40); RDW 14.4 % (11.5-15.5); WBC 3.9 k/uL (3.8-10.6); WBC (Perox) 3.96
[2017-03-23 07:31] LABS: Anion Gap 8 mmol/L; Blood Urea Nitrogen 5 mg/dL (7-17); Calcium 8.5 mg/dL (8.4-10.2); Carbon Dioxide 23 mmol/L (22-30); Chloride 106 mmol/L (98-107); Glucose 81 mg/dL (74-99); Non-African American GFR(MDRD) >60 (>60 ml/min/1.73 sqM); Potassium 3.8 mmol/L (3.5-5.1); Sodium 137 mmol/L (137-145)
[2017-03-23] MEDS: DIPHENOX-ATROP 2.5-0.025 MG 1 EACH TAB PO SCH ×2 (08:03→14:12)
[2017-03-23] MEDS: DICYCLOMINE 10 MG CAP PO SCH ×2 (08:04→14:11)
[2017-03-23] MEDS: LORazepam 0.5 MG TAB PO SCH ×2 (08:06→14:11)
[2017-03-23] MEDS ORDERED: buPROPion XL 300 MG TAB.ER.24H PO SCH (09:00)
[2017-03-23] MEDS ORDERED: traZODone HCL 50 MG TAB PO SCH (13:30)
--- NOTE | 2017-03-23 13:48 | DS ---
DATE OF ADMISSION: 03/22/2017 DATE OF DISCHARGE: HOSPITAL COURSE: Ms. Love is a 66-year-old female with a past medical history of GERD, tremors, bipolar disorder who is sent from her PCP's office as she was found to have hyponatremia. Patient was found to have a sodium of 127 at the time of admission. She was given IV fluids after which her sodium bumped up to 137 and currently it is 135. Patient was having balance issues and was feeling fatigued for the past 2 to 3 weeks. She denies having any falls, loss of consciousness or headaches. The patient's Oxcarbazepine have been discontinued, which is known to cause hyponatremia. The patient patient's daughter states that she takes this medication for her tremors but it was explained to her daughter that this medication can cause hyponatremia and so it will be discontinued for now. She can follow up with her psychiatric and her PCP for further management of her tremors with other medications. Patient is back to her baseline and she does not have any active complaints. She is being discharged home in stable condition. DISCHARGE DIAGNOSES: 1. Hyponatremia secondary to likely drug-induced due to oxcarbazepine. 2. Resting tremors. 3. Gastroesophageal reflux disease. 4. Bipolar disorder. 5. Anxiety/depression. 6. Nicotine dependence. DISCHARGE MEDICATIONS: 1. Ativan 0.5 mg p.o. b.i.d. 2. Omeprazole 40 mg p.o. daily. 3. Wellbutrin XL 300 mg p.o. daily. 4. Citalopram 20 mg p.o. daily. 5. Lomotil 1 tablet p.o. a.c. q.h.s. for on diarrhea. 6. Aspirin 81 mg p.o. q.h.s. 7. Multivitamin 1 tablet p.o. daily. 8. Bentyl 10 mg p.o. 4 times a day. 9. Trazodone 50 mg at lunch, and 100 mg at bedtime. Follow-up: The patient is advised to follow up her PCP Dr. Carmina Randall in 1 to 2 days and with her. Psychiatrist within two to three days. Discharge recommendations: The patient is advised to stop taking oxcarbazepine. Patient is being discharged home with her daughter in stable condition.
[2017-03-23] MEDS ORDERED: PANTOPRAZOLE 40 MG TABLET PO SCH (14:00)
[2017-03-23 14:09] VITALS: BP 137/70; PULSE 70; RESP 16; TEMP 98.6
== END 2017-03-23 14:47 | disposition home or self-care (01) | DRG 641 ==
LOC: EC 20:33 → 5MS5E 03-22 02:02 → 3SUR 03-22 06:16
PROVIDERS: ADMIT Internal Medicine; ATTEND Internal Medicine
DX: E87.1 Hypo-osmolality and hyponatremia (principal); F31.9 Bipolar disorder, unspecified; T42.1X5A Adverse effect of iminostilbenes, initial encounter; K21.9 Gastro-esophageal reflux disease without esophagitis; R25.1 Tremor, unspecified; R26.9 Unspecified abnormalities of gait and mobility; F17.200 Nicotine dependence, unspecified, uncomplicated; F41.9 Anxiety disorder, unspecified; R53.1 Weakness; R53.83 Other fatigue; Z90.49 Acquired absence of other specified parts of digestive tract; Z80.9 Family history of malignant neoplasm, unspecified; Z79.899 Other long term (current) drug therapy; Z79.82 Long term (current) use of aspirin; Z83.3 Family history of diabetes mellitus; Z81.8 Family history of other mental and behavioral disorders; Z83.49 Family history of other endocrine, nutritional and metabolic diseases; Z86.79 Personal history of other diseases of the circulatory system; Z91.5 Personal history of self-harm; Z91.410 Personal history of adult physical and sexual abuse; Z86.010 Personal history of colon polyps; Z87.81 Personal history of (healed) traumatic fracture
CPT/HCPCS: 36415; 80048; 80053; 85025

== ENCOUNTER → 2017-05-30 | Outpatient (CLI) | payer MEDICARE, OTHER ==
--- NOTE | 2017-05-30 12:23 | FL ---
EXAMINATION TYPE: FL barium swallow DATE OF EXAM ORDERED: 05/30/2017 12:15 PM HISTORY: Dysphagia and heartburn. COMPARISON: None. FINDINGS: The patient had some difficulty cooperating with the exam. The study was essentially a sin gle contrast study. The esophagus distended normally with barium without evidence of obstructing or constricting disease. There is mild cricopharyngeal achalasia. There is evidence of presbyesophagus. The GE junction has a n unusual appearance and this is presumably due to previous hiatal hernia repair. No hiatal hernia se en at this time. IMPRESSION: 1. MILD CRICOPHARYNGEAL ACHALASIA. 2. PRESBYESOPHAGUS. 3. POSTSURGICAL CHANGE.
[2017-05-30 12:40] LABS: Potassium 4.2 mmol/L (3.5-5.1)
== END | disposition home or self-care (01) ==
LOC: RADFLWHC 11:08
PROVIDERS: ATTEND Internal Medicine Gastroenterology
DX: K22.8 Other specified diseases of esophagus (principal); J39.2 Other diseases of pharynx; G40.909 Epilepsy, unspecified, not intractable, without status epilepticus; E87.1 Hypo-osmolality and hyponatremia; Z98.890 Other specified postprocedural states
CPT/HCPCS: 74220; 80051; 80164

== ENCOUNTER → 2017-12-11 | Outpatient (CLI) | payer MEDICARE, OTHER ==
--- NOTE | 2017-12-11 14:24 | BD ---
EXAMINATION TYPE: MG DEXA axial skeleton. DATE OF EXAM: 12/11/2017 COMPARISON: DEXA bone scan September 14, 2014 CLINICAL HISTORY: Postmenopausal female Height: 60 Weight: 99.2 FRAX RISK QUESTIONS: Alcohol (3 or more units per day): no Family History (Parent hip fracture): no Glucocorticoids (More than 3mos): no (Ex: prednisone, prednisolone, methylprednisolone, dexamethasone, and hydrocortisone). History of Fracture in Adulthood: no Secondary Osteoporosis: 1. Type 1 Diabetes: no 2. Hyperthyroidism: no 3. Menopause before 45: no 4. Malnutrition: no 5. Chronic liver disease: no Rheumatoid Arthritis: no Current Tobacco Use: yes RISK FACTORS HISTORY OF: Surgery to Spine/Hip(right/left)/Wrist (right/left): no Family History of Osteoporosis: no Active: sometimes Diet low in dairy products/other sources of calcium: no Postmenopausal woman: age 48 Lost more than 2 inches in height since high school: no Frequent falls: no Poor Health: no Hyperparathyroidism: no Adrenal Insufficiency: no MEDICATIONS: citalopram, bupropion, omeprazole, lorazepam, keppra, trazodone, halobetasol propionate, Prednisone or other steroids: yes/ fluocinonide Additional History: EXAM MEASUREMENTS: Bone mineral densitometry was performed using the [employer] System. Bone mineral density as measured about the Lumbar spine is: ----- L1-L4(G/cm2): 0.677 T Score Values are as follows: ----- L2: -4.1 ----- L3: -4.4 ----- L4: -4.3 ----- L1-L4: -4.2 Bone mineral density has: decreased -9.5 % since study of: 09.14.2014 Bone mineral density about the R hip (g/cm2): 0.591 Bone mineral density about the L hip (g/cm2): 0.610 T Score values are as follows: -----R Neck: -3.2 -----L Neck: -3.1 -----R Total: -3.1 -----L Total: -3.2 Bone mineral density has: decreased -11.2 % since study of: 09.14.2014 IMPRESSION: Osteoporosis (T Score less than -2.5) as noted by T Score values at the low back and both hips persis t. Bone density is decreased or diminished from prior. There remains increased fracture risk and therapy is usually indicated based on age. Re-Screen 1-2 years. NOTE: T-SCORE=SD OF THE YOUNG ADULT MEAN.
--- NOTE | 2017-12-12 09:17 | MM ---
Reason for exam: screening (asymptomatic). Last mammogram was performed 3 years and 3 months ago. History: Patient is postmenopausal. Family history of breast cancer in sister. Benign core biopsy of the left breast. Physical Findings: A clinical breast exam by your physician is recommended on an annual basis and results should be correlated with mammographic findings. MG 3D Screening Mammo W/Cad Bilateral CC and MLO view(s) were taken. Prior study comparison: September 14, 2014, bilateral MG screening mammo w CAD. August 11, 2013, bilateral digital screening mammo w/CAD. The breast tissue is heterogeneously dense. This may lower the sensitivity of mammography. There is no discrete abnormality. No significant changes when compared with prior studies. ASSESSMENT: Negative, BI-RAD 1 RECOMMENDATION: Routine screening mammogram of both breasts in 1 year.
== END | disposition home or self-care (01) ==
LOC: RADMAMWWP 12:59
PROVIDERS: ATTEND Family Medicine
DX: Z12.31 Encounter for screening mammogram for malignant neoplasm of breast (principal); M81.0 Age-related osteoporosis without current pathological fracture; Z78.0 Asymptomatic menopausal state
CPT/HCPCS: 77063; 77067; 77080

== ENCOUNTER → 2018-06-11 | Outpatient (CLI) | payer MEDICARE, OTHER ==
--- NOTE | 2018-06-11 13:50 | CT ---
EXAMINATION TYPE: CT chest w con DATE OF EXAM: 06/11/2018 COMPARISON: NONE HISTORY: Cough CT DLP: 308 mGycm. Automated Exposure Control for Dose Reduction was Utilized. TECHNIQUE: CT scan of the thorax is performed following with IV Contrast, patient injected with 100 ml mL of Isovue 300. FINDINGS: LUNGS: There is moderate background centrilobular emphysematous change. Multifocal bandlike areas of pleural-parenchymal scarring are seen. There is pulmonary hyperinflation and increased anterior poste rior diameter of the chest compatible with underlying COPD. No focal consolidation or pulmonary mass is present. Main tracheobronchial tree is patent The lungs are grossly clear, there is no concerning parenchymal mass or nodule identified. There is no pleural effusion or pneumothorax seen. The trac heobronchial tree is patent. MEDIASTINUM: There are no greater than 1 cm hilar or mediastinal lymph nodes. No pericardial effusi on is seen. Mild coronary artery calcifications are seen. OTHER: There is postsurgical change of the gastroesophageal junction with small hiatal hernia. Slight thickening of the left adrenal gland is incidentally noted, which may relate to underlying adrenal g land hyperplasia. Old healed left lateral rib fractures are present. Large Schmorl's node is seen of the superior endplate of T12. IMPRESSION: Moderate centrilobular pulmonary emphysema. No focal consolidation or acute process withi n the chest. No pulmonary mass.
== END | disposition home or self-care (01) ==
LOC: RADCTMAIN 12:16
PROVIDERS: ATTEND Family Medicine
DX: J43.2 Centrilobular emphysema (principal)
CPT/HCPCS: 82565; 84520; 71260; 36415; Q9967

== ENCOUNTER 2018-12-25 08:45 | Day surgery (SDC) | payer MEDICARE, OTHER ==
[2018-12-22 14:19] VITALS: BMI 20.7
[2018-12-25 09:11] VITALS: TEMP 97.6
[2018-12-25] MEDS ORDERED: LIDOCAINE 1% 20 ML VIAL (10MG/ML) FOR IV START INTRADERMA ONE (09:16)
[2018-12-25] MEDS ORDERED: LACTATED RINGERS 1,000 ML IV ONE (09:16)
[2018-12-25] MEDS ORDERED: PROPOFOL 10 MG/ML 20 ML VIAL IV ONE (09:36)
--- NOTE | 2018-12-25 10:06 | P.PCN ---
Date of Procedure: 12/25/18 Procedure(s) Performed: BRIEF HISTORY: Patient is a 60-year-old, pleasant, white female, scheduled for an upper endoscopy as a part of evaluation of atypical chest pain for the last 6 months duration. Recently was started on Prilosec 20 mg twice daily and feeling better. She is scheduled for an upper endoscopy to rule out reflux disease. PROCEDURE PERFORMED: Esophagogastroduodenoscopy with biopsy. PREOPERATIVE DIAGNOSIS: Atypical chest pain. IV sedation per anesthesia. PROCEDURE: After informed consent was obtained, the patient was brought into the endoscopy unit. IV sedation was administered by Anesthesia under continuous monitoring. Initially the Olympus GIF-140 video endoscope was inserted into the mouth. Esophagus intubated without any difficulty. It was gradually advanced into the stomach and duodenum and carefully examined. The bulb and the second part of the duodenum appeared normal. The scope at this time was withdrawn to the stomach, adequately insufflated with air, and upon careful examination, mucosa of the antrum, had mild gastritis and biopsies were done from this area. The body, cardia and the fundus appeared normal. On retroflexion there was evidence of previous hiatal hernia surgery seen. The scope was then withdrawn into the esophagus. The GE junction was located at 35 cm from the incisors. Small paraesophageal hiatal hernia noted. The esophagus appeared normal. There were no erosions or ulcerations seen and the patient tolerated the procedure well. IMPRESSION: 1. Small paraesophageal hiatal hernia but no evidence of esophagitis. 2. Mild antral gastritis. RECOMMENDATIONS: The findings of this examination were discussed with the patient is a family. She was advised to follow with the biopsy results. She will continue with Prilosec 20 mg twice daily and she'll be seen in office in 6 weeks..
[2018-12-25 10:10] VITALS: RESP 18
[2018-12-25 11:05] VITALS: BP 110/69; PULSE 63
== END 2018-12-25 11:27 | disposition home or self-care (01) ==
LOC: ORWHC2ENDO 08:45
PROVIDERS: ATTEND Internal Medicine Gastroenterology
DX: K21.9 Gastro-esophageal reflux disease without esophagitis (principal); K29.50 Unspecified chronic gastritis without bleeding; K44.9 Diaphragmatic hernia without obstruction or gangrene; I73.9 Peripheral vascular disease, unspecified; F17.210 Nicotine dependence, cigarettes, uncomplicated; R56.9 Unspecified convulsions; Z79.1 Long term (current) use of non-steroidal anti-inflammatories (NSAID); Z79.82 Long term (current) use of aspirin; Z79.899 Other long term (current) drug therapy
CPT/HCPCS: 88305; 43239; J2704

== ENCOUNTER → 2019-09-14 | Outpatient (CLI) | payer MEDICARE, OTHER ==
--- NOTE | 2019-09-14 14:34 | US ---
EXAMINATION TYPE: US kidneys/renal and bladder DATE OF EXAM: 09/14/2019 COMPARISON: NONE CLINICAL HISTORY: R31.9 Hematuria. Hematuria. EXAM MEASUREMENTS: Right Kidney: 8 7 x 3.4 x 4.3 cm Left Kidney: cm Right Kidney: Dilated renal pelvis 1.1 x 2.0 x 1.1 cm. Left Kidney: 8.3 x 3.5 x 3.0 cm Bladder: Not fully distended. Bilateral Jets seen: No Mild pelvic caliectasis on the right with no hydronephrosis on the left. No nephrolithiasis. Bladder limited by incomplete distention IMPRESSION: 1. Very mild pelvic caliectasis on the right without evidence of overt hydronephrosis. There is no ev idence of nephrolithiasis.
== END | disposition home or self-care (01) ==
LOC: RADUSWWP 12:52
PROVIDERS: ATTEND Family Medicine
DX: N28.89 Other specified disorders of kidney and ureter (principal)
CPT/HCPCS: 76770

== ENCOUNTER → 2019-10-20 | Outpatient (CLI) | payer MEDICARE, OTHER ==
--- NOTE | 2019-10-20 17:27 | CT ---
EXAMINATION TYPE: CT urogram wo/w con DATE OF EXAM: 10/20/2019 COMPARISON: None HISTORY: hematuria for [address] DLP: 705.7 mGycm Automated exposure control for dose reduction was used. CONTRAST: Performed with IV Contrast, patient injected with 100 mL of Isovue 370. TECHNIQUE: Axial images 5 mm thick sections. Reconstructed images performed on a separate computer by the technologist. Three-D reconstructed images of the renal collecting system was performed FINDINGS: Note is made of a superior endplate compression deformity of L1 which may be superimposed on a Schmor l's node. Hepatomegaly is present. This could be due to a Koby's lobe. Portion of liver and spleen visualized is unremarkable. Vascular calcifications within the aorta. Inferior vena cava is normal. Gallbladder is unremarkable. Pancreas is normal. Adrenal glands are normal. Noncontrast imaging through the kidneys appears normal. Following contrast administration no masses c ysts or hydronephrosis within the kidneys is evident. The renal pelves appear normal. Reconstructed images of the kidneys ureter and bladder are performed. There is prominence of the bila teral ureters hydroureter within the proximal ureters is present. This appears to extend towards the urinary bladder. Urinary bladder fills normally without intraluminal or extramural defects. IMPRESSION: BILATERAL HYDROURETER OF INDETERMINATE ETIOLOGY. THERE IS SOME MILD PROMINENCE OF THE EXTRARENAL PELV ES ALTHOUGH THE RENAL CALYCES AND INFUNDIBULUM APPEAR NORMAL WITHIN THE KIDNEYS.
== END | disposition home or self-care (01) ==
LOC: RADCTMAIN 12:29
PROVIDERS: ATTEND Urology
DX: N13.4 Hydroureter (principal)
CPT/HCPCS: 82565; 84520; 74178; 36415; 74400; Q9967

== ENCOUNTER → 2019-11-11 | Outpatient (CLI) | payer MEDICARE, OTHER ==
--- NOTE | 2019-11-11 12:41 | MM ---
Reason for exam: clinical finding. Last mammogram was performed 1 year and 11 months ago. History: Patient is postmenopausal. Family history of breast cancer in sister. Benign core biopsy of the left breast. Indicated problem(s): pain in both breasts. Physical Findings: Nurse did not find any significant physical abnormalities on exam. MG 3D Diag Mammo W/Cad TERESA Bilateral CC and MLO view(s) were taken. Prior study comparison: December 11, 2017, bilateral MG 3d screening mammo w/cad. September 14, 2014, bilateral MG screening mammo w CAD. The breast tissue is heterogeneously dense. This may lower the sensitivity of mammography. No suspicious abnormality. Left biopsy marker noted. These results were verbally communicated with the patient and result sheet given to the patient on 11/11/19. ASSESSMENT: Negative, BI-RAD 1 RECOMMENDATION: Routine screening mammogram of both breasts in 1 year.
== END | disposition home or self-care (01) ==
LOC: RADMAMWWP 10:56
PROVIDERS: ATTEND Family Medicine
DX: N64.4 Mastodynia (principal)
CPT/HCPCS: 77066; G0279; 77062

== ENCOUNTER → 2020-03-23 | Outpatient (CLI) | payer MEDICARE, OTHER ==
--- NOTE | 2020-03-24 07:15 | US ---
EXAMINATION TYPE: US kidneys/renal and bladder DATE OF EXAM: 03/23/2020 COMPARISON: US 2019 CLINICAL HISTORY: Hydronephrosis,Calculus. Hydronephrosis, calculus. Hx malignant bladder tumor remov ed 01/11/2020. Hematuria per patient. EXAM MEASUREMENTS: Right Kidney: 10.0 x 3.9 x 3.8 cm Left Kidney: 8.9 x 4.4 x 4.2 cm Right Kidney: No hydronephrosis or masses seen. Left Kidney: No hydronephrosis or masses seen. Left kidney measures slightly smaller. Bladder: Dependent echogenicity such as on image 46/61 measures up to 8 mm in thickness. Minimal inte rnal echoes seen that are nondependent, likely artifactual. There is an anechoic connecting area supe riorly measuring approximately: 1.9 x 3.1 x 0.8 cm. Bladder wall measures 0.33 cm., Upper limits of n ormal although the urinary bladder is incompletely distended Bilateral Jets seen: Left jet seen IMPRESSION: Dependent echogenicity in the urinary bladder, possibly debris or hemorrhage although direct visualiz ation should be considered in this patient with hematuria and recent bladder tumor removal. Anterior right lateral urinary bladder diverticulum is also incidentally seen.
== END | disposition home or self-care (01) ==
LOC: RADUSWWP 16:59
PROVIDERS: ATTEND Urology
DX: N20.0 Calculus of kidney (principal); N13.30 Unspecified hydronephrosis
CPT/HCPCS: 76770

== ENCOUNTER → 2020-05-15 | Outpatient (CLI) | payer MEDICARE, OTHER ==
--- NOTE | 2020-05-15 08:30 | US ---
EXAMINATION TYPE: US abdomen limited DATE OF EXAM: 05/15/2020 COMPARISON: NONE CLINICAL HISTORY: R10.11 right upper quadrant pain. EXAM MEASUREMENTS: Liver Length: 13.5 cm Gallbladder Wall: 0.3 cm CBD: 1.4 cm Right Kidney: 9.9 x 3.1 x 4.4 cm Pancreas: partially obscured by bowel gas, portions visualized wnl Liver: wnl Gallbladder: filled with debris and particulate matter with comet tail artifact Evidence for sonographic Morel's sign: no CBD: grossly dilated, intrahepatic ducts dilated Right Kidney: wnl IMPRESSION: Dilated common bile duct with the gallbladder lumen filled with debris and sludge material.
== END | disposition home or self-care (01) ==
LOC: RADUSWWP 07:40
PROVIDERS: ATTEND Nurse Practitioner
DX: K83.8 Other specified diseases of biliary tract (principal)
CPT/HCPCS: 76705

== ENCOUNTER → 2020-11-23 | Outpatient (CLI) | payer MEDICARE, OTHER ==
[2020-11-23 16:32] LABS: Basophils # (A) 0.1 k/uL (0-0.2); Basophils % (A) 2 %; Eosinophils # (A) 0.1 k/uL (0-0.7); Eosinophils % (A) 2 %; HCT 37.9 % (34.0-46.0); HGB 12.7 gm/dL (11.4-16.0); Lymphocytes # (A) 1.7 k/uL (1.0-4.8); Lymphocytes % (A) 29 %; MCH 32.2 pg (25.0-35.0); MCHC 33.4 g/dL (31.0-37.0); MCV 96.4 fL (80.0-100.0); Mean Platelet Volume 7.9; Monocytes # (A) 0.5 k/uL (0-1.0); Monocytes % (A) 9 %; Neutrophils # (A) 3.3 k/uL (1.3-7.7); Neutrophils % (A) 57 %; Platelet Count 241 k/uL (150-450); RBC 3.93 m/uL (3.80-5.40); RDW 12.5 % (11.5-15.5); WBC 5.8 k/uL (3.8-10.6)
[2020-11-24 04:03] LABS: African American GFR (CKD) 66.1 (60.0-200.0); Albumin 4.7 g/dL (3.80-4.90); Albumin/Globulin Ratio 2.94 (1.60-3.17); Anion Gap 10.2 mmol/L (4.00-12.00); Calcium 9.6 mg/dL (8.7-10.3); Carbon Dioxide 22.8 mmol/L (21.6-31.8); Globulin 1.6 g/dL (1.6-3.3); Potassium 4.7 mmol/L (3.5-5.5); Total Bilirubin 0.2 mg/dL (0.2-1.2); Total Protein 6.3 g/dL (6.2-8.2)
== END | disposition home or self-care (01) ==
LOC: LABWHC1 15:20
PROVIDERS: ATTEND Nurse Practitioner
DX: R10.9 Unspecified abdominal pain (principal)
CPT/HCPCS: 36415; 80053; 82150; 83690; 85025

== ENCOUNTER 2020-11-24 16:07 | Emergency (ER) | payer MEDICARE, OTHER ==
[2020-11-24 16:18] VITALS: RESP 18
[2020-11-24] MEDS ORDERED: SODIUM CHLORIDE 0.9% 500 ML 500 ML IV STA (16:41)
[2020-11-24] MEDS ORDERED: KETOROLAC 15 MG/ML 1 ML VIAL IVP STA (16:41)
[2020-11-24 17:04] LABS: Basophils # (A) 0.1 k/uL (0-0.2); Basophils % (A) 2 %; Eosinophils # (A) 0.1 k/uL (0-0.7); Eosinophils % (A) 3 %; HCT 36.2 % (34.0-46.0); HGB 12.1 gm/dL (11.4-16.0); Lymphocytes # (A) 1.4 k/uL (1.0-4.8); Lymphocytes % (A) 36 %; MCH 31.7 pg (25.0-35.0); MCHC 33.6 g/dL (31.0-37.0); MCV 94.5 fL (80.0-100.0); Mean Platelet Volume 7.5; Monocytes # (A) 0.3 k/uL (0-1.0); Monocytes % (A) 8 %; Neutrophils % (A) 50 %; Platelet Count 222 k/uL (150-450); RBC 3.83 m/uL (3.80-5.40); RDW 12.5 % (11.5-15.5)
[2020-11-24 17:13] LABS: INR 0.9 (<1.2); Partial Thromboplastin Time 22.8 sec (22.0-30.0); Prothrombin Time 9.9 sec (9.0-12.0)
[2020-11-24 17:17] LABS: Calcium 8.9 mg/dL (8.4-10.2); Potassium 3.9 mmol/L (3.5-5.1); Total Bilirubin 0.2 mg/dL (0.2-1.3); Total Protein 6.3 g/dL (6.3-8.2)
--- NOTE | 2020-11-24 17:56 | ED ---
Abdominal Pain HPI - General Source: patient Mode of arrival: ambulatory Limitations: no limitations <Katiuska Vasquez - Last Filed: 11/24/20 18:16> <Freya Will - Last Filed: 11/29/20 00:47> - General Chief Complaint: Abdominal Pain Stated Complaint: colitis Time Seen by Provider: 11/24/20 16:22 - History of Present Illness Initial Comments: Patient is a 70-year-old female presenting to the emergency Department with complaints of right-sided abdominal pain that has been intermittent for a couple years. Patient states her symptoms are worse over the past week. She had an outpatient computed tomography scan today and her doctor called her to come into the ER regarding the results of it. Patient states that showed colitis but also some decrease in vascular flow the right femoral artery. Patient does have history of appendectomy, cholecystectomy and hernia repair. She states that she's been having this intermittent pain in the right upper quadrant, right lower ribs that does radiate into her right side at times. She states the pain got worse again about 1 week ago and has not subsided. She admits to occasional nausea and vomiting, no diarrhea. Patient states she has lost a lot of weight over the past year, he cuts her appetite has been so low. She states she has not had a bowel movement in 2 days. She denies any radiating pain into her legs, she denies any numbness or tingling. She denies any chest pain or shortness of breath. She has no further complaints at this time. Upon arrival to the ER, her vital signs are stable. (Katiuska Vasquez) - Related Data Home Medications Medication Instructions Recorded Confirmed LORazepam [Ativan] 0.5 mg PO TID PRN 04/04/15 11/24/20 Omeprazole [PriLOSEC] 20 mg PO BID 04/04/15 11/24/20 buPROPion XL [Wellbutrin XL] 300 mg PO DAILY 04/04/15 11/24/20 Citalopram Hydrobromide [CeleXA] 20 mg PO DAILY 01/16/17 11/24/20 Aspirin EC [Ecotrin Low Dose] 81 mg PO HS 03/07/17 11/24/20 Multivitamins, Thera [Multivitamin 1 tab PO DAILY 03/07/17 11/24/20 (formulary)] Biotin 10,000 mcg PO DAILY 12/22/18 11/24/20 Dicyclomine [Bentyl] 20 mg PO QID PRN 12/22/18 11/24/20 Diphenox-Atrop 2.5-0.025 mg 2 tab PO QID PRN 12/22/18 11/24/20 [Lomotil] levETIRAcetam [Keppra] 750 mg PO HS 12/22/18 11/24/20 Acetaminophen [Tylenol 8 Hour] 650 mg PO QID PRN 11/24/20 11/24/20 Ferrous Sulfate [Feosol] 325 mg PO DAILY 11/24/20 11/24/20 Ondansetron [Zofran] 4 mg PO Q8HR PRN 11/24/20 11/24/20 dilTIAZem HCL [Diltiazem HCl] 30 mg PO BID 11/24/20 11/24/20 levETIRAcetam [Keppra] 1,000 mg PO DAILY 11/24/20 11/24/20 traZODone HCL 50 mg PO DAILY@1400 11/24/20 11/24/20 traZODone HCL 100 mg PO HS 11/24/20 11/24/20 Previous Rx's Medication Instructions Recorded Amoxicillin/Potassium Clav 1 tab PO BID 5 Days #10 tab 11/24/20 [Augmentin 875-125 Tablet] Allergies Allergy/AdvReac Type Severity Reaction Status Date / Time No Known Allergies Allergy Verified 11/24/20 17:50 Review of Systems ROS Other: All systems not noted in ROS Statement are negative. <Katiuska Vasquez - Last Filed: 11/24/20 18:16> ROS Other: All systems not noted in ROS Statement are negative. <Freya Will - Last Filed: 11/29/20 00:47> ROS Statement: Those systems with pertinent positive or pertinent negative responses have been documented in the HPI. Past Medical History Past Medical History: CVA/TIA, GERD/Reflux, Seizure Disorder Additional Past Medical History / Comment(s): HX of TIA'S., hypotension, IBS, SEIZURE X1 (2016). History of Any Multi-Drug Resistant Organisms: None Reported Past Surgical History: Appendectomy, Cholecystectomy, Hernia Repair Additional Past Surgical History / Comment(s): egd/colonoscopy/polys-benign, arm sx d/t break, bladder tumor removed 2019, Past Anesthesia/Blood Transfusion Reactions: No Reported Reaction Past Psychological History: Anxiety, Depression Past Alcohol Use History: None Reported Past Drug Use History: None Reported - Past Family History Mother Family Medical History: Dementia, Diabetes Mellitus, Osteoarthritis (OA), Thyroid Disorder Father Family Medical History: Cancer Brother(s) Family Medical History: Cancer Sister(s) Family Medical History: Cancer <ChristinaKatiuska L - Last Filed: 11/24/20 18:16> General Exam Limitations: no limitations <ChristinaKatiuska - Last Filed: 11/24/20 18:16> - General Exam Comments Initial Comments: GENERAL: Patient is well-developed and well-nourished. Patient is nontoxic and in no acute distress. HEAD: Atraumatic, normocephalic. EYES: Pupils equal round and reactive to light, extraocular movements intact, sclera anicteric, conjunctiva are normal. Eyelids were unremarkable. ENT: TMs normal, nares patent, oropharynx clear without exudates. Moist mucous membranes. NECK: Normal range of motion, supple without lymphadenopathy or JVD. LUNGS: Unlabored respirations. Breath sounds clear to auscultation bilaterally and equal. No wheezes rales or rhonchi. HEART: Regular rate and rhythm without murmurs, rubs or gallops. ABDOMEN: Minimal pain with palpation of the right upper quadrant, no other areas of pain. Soft, normoactive bowel sounds. No guarding, no rebound. No masses appreciated. : Deferred MUSCULOSKELETAL: Normal extremities with adequate strength and normal range of motion, no pitting or edema. No clubbing or cyanosis. Patient is neurovascular intact bilateral lower extremities. NEUROLOGICAL: Patient is alert and oriented x 3. Motor and sensory are also intact. Cranial nerves II through XII grossly intact. Symmetrical smile. Normal speech, normal gait. PSYCH: Normal mood, normal affect. SKIN: Warm, Dry, normal turgor, no rashes or lesions noted. (Katiuska Vasquez) Course Vital Signs 11/24/20 11/24/20 11/24/20 16:13 17:16 17:28 Temperature 97.8 F Pulse Rate 62 55 L 52 L Respiratory 18 18 Rate Blood Pressure 99/49 110/57 O2 Sat by Pulse 97 95 Oximetry 11/24/20 18:35 Temperature 98.0 F Pulse Rate 64 Respiratory 18 Rate Blood Pressure 130/70 O2 Sat by Pulse 98 Oximetry Medical Decision Making - Lab Data Result diagrams: 11/24/20 16:54 11/24/20 16:54 <Katiuska Vasquez - Last Filed: 11/24/20 18:16> - Lab Data Result diagrams: 11/24/20 16:54 11/24/20 16:54 <Freya Will - Last Filed: 11/29/20 00:47> - Medical Decision Making Patient is a 70-year-old female here for abdominal pain that has been intermittent for 2 years but has been steadily worse in the past week. Her vital signs are stable, afebrile. She does have intermittent nausea and vomiting. She had outpatient CT done today and her PCP sent her into the ER after the results. Results showed mild to moderate right-sided acute colitis, also showed moderate to severe stenosis at the right common femoral artery. 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 Labs today show no acute process, lactic acid is normal, urine is normal. I discussed these findings with vascular surgeon Dr. Mackenzie who does not feel that any acute intervention needs to be done. She does not need to be started on blood thinners. Patient will follow-up with Dr. Mackenzie as an outpatient. Regarding the colitis, I will put patient on Augmentin for 5 days. She can take Tylenol or Motrin for any discom fort. She will also follow-up with her regular PCP. Patient and patient's daughter are both in agreement with this plan of care. Patient is stable for discharge. Return parameters were discussed with the patient and she verbalized understanding. Case discussed with Dr. Will. (Katiuska Vasquez) I was available for consultation in the emergency department. The history and physical exam were done by the midlevel provider. I was consulted for this patients care. I reviewed the case with the midlevel provider and based on their presentation of the patient, I agree with the assessment, medical decision making and plan of care as documented. Chart was dictated using [employer] dictation software. Attempts were made to correct any dictation errors however some typographical errors may persist. Patient was seen during a national state of emergency due to the Covid-19 pandemic. (Freya Will - Lab Data Lab Results 11/24/20 11/24/20 11/24/20 Range/Units 16:54 16:54 16:54 WBC 4.0 (3.8-10.6) k/uL RBC 3.83 (3.80-5.40) m/uL Hgb 12.1 (11.4-16.0) gm/dL Hct 36.2 (34.0-46.0) % MCV 94.5 (80.0-100.0) fL MCH 31.7 (25.0-35.0) pg MCHC 33.6 (31.0-37.0) g/dL RDW 12.5 (11.5-15.5) % Plt Count 222 (150-450) k/uL MPV 7.5 Neutrophils % 50 % Lymphocytes % 36 % Monocytes % 8 % Eosinophils % 3 % Basophils % 2 % Neutrophils # 2.0 (1.3-7.7) k/uL Lymphocytes # 1.4 (1.0-4.8) k/uL Monocytes # 0.3 (0-1.0) k/uL Eosinophils # 0.1 (0-0.7) k/uL Basophils # 0.1 (0-0.2) k/uL PT 9.9 (9.0-12.0) sec INR 0.9 (<1.2) APTT 22.8 (22.0-30.0) sec Sodium 130 L (137-145) mmol/L Potassium 3.9 (3.5-5.1) mmol/L Chloride 101 (98-107) mmol/L Carbon Dioxide 25 (22-30) mmol/L Anion Gap 4 mmol/L BUN 18 H (7-17) mg/dL Creatinine 0.85 (0.52-1.04) mg/dL Est GFR (CKD-EPI)AfAm 81 (>60 ml/min/1.73 sqM) Est GFR (CKD-EPI)NonAf 70 (>60 ml/min/1.73 sqM) Glucose 97 (74-99) mg/dL Plasma Lactic Acid Parth (0.7-2.0) mmol/L Calcium 8.9 (8.4-10.2) mg/dL Total Bilirubin 0.2 (0.2-1.3) mg/dL AST 26 (14-36) U/L ALT 28 (4-34) U/L Alkaline Phosphatase 58 (38-126) U/L Troponin I (0.000-0.034) ng/mL Total Protein 6.3 (6.3-8.2) g/dL Albumin 4.0 (3.5-5.0) g/dL Amylase 77 (30-110) U/L Lipase 49 (23-300) U/L Urine Color Urine Appearance (Clear) Urine pH (5.0-8.0) Ur Specific [place] (1.001-1.035) Urine Protein (Negative) Urine Glucose (UA) (Negative) Urine Ketones (Negative) Urine Blood (Negative) Urine Nitrite (Negative) Urine Bilirubin (Negative) Urine Urobilinogen (<2.0) mg/dL Ur Leukocyte Esterase (Negative) 11/24/20 11/24/20 11/24/20 Range/Units 16:54 16:54 17:36 WBC (3.8-10.6) k/uL RBC (3.80-5.40) m/uL Hgb (11.4-16.0) gm/dL Hct (34.0-46.0) % MCV (80.0-100.0) fL MCH (25.0-35.0) pg MCHC (31.0-37.0) g/dL RDW (11.5-15.5) % Plt Count (150-450) k/uL MPV Neutrophils % % Lymphocytes % % Monocytes % % Eosinophils % % Basophils % % Neutrophils # (1.3-7.7) k/uL Lymphocytes # (1.0-4.8) k/uL Monocytes # (0-1.0) k/uL Eosinophils # (0-0.7) k/uL Basophils # (0-0.2) k/uL PT (9.0-12.0) sec INR (<1.2) APTT (22.0-30.0) sec Sodium (137-145) mmol/L Potassium (3.5-5.1) mmol/L Chloride (98-107) mmol/L Carbon Dioxide (22-30) mmol/L Anion Gap mmol/L BUN (7-17) mg/dL Creatinine (0.52-1.04) mg/dL Est GFR (CKD-EPI)AfAm (>60 ml/min/1.73 sqM) Est GFR (CKD-EPI)NonAf (>60 ml/min/1.73 sqM) Glucose (74-99) mg/dL Plasma Lactic Acid Parth 0.7 (0.7-2.0) mmol/L Calcium (8.4-10.2) mg/dL Total Bilirubin (0.2-1.3) mg/dL AST (14-36) U/L ALT (4-34) U/L Alkaline Phosphatase (38-126) U/L Troponin I <0.012 (0.000-0.034) ng/mL Total Protein (6.3-8.2) g/dL Albumin (3.5-5.0) g/dL Amylase (30-110) U/L Lipase (23-300) U/L Urine Color Light Yellow Urine Appearance Clear (Clear) Urine pH 5.5 (5.0-8.0) Ur Specific [place] 1.019 (1.001-1.035) Urine Protein Negative (Negative) Urine Glucose (UA) Negative (Negative) Urine Ketones Negative (Negative) Urine Blood Negative (Negative) Urine Nitrite Negative (Negative) Urine Bilirubin Negative (Negative) Urine Urobilinogen <2.0 (<2.0) mg/dL Ur Leukocyte Esterase Negative (Negative) - EKG Data EKG Comments: Sinus bradycardia otherwise normal ECG, no signs of acute process. Ventricular rate 54, MI interval 172, QTC 450. (Katiuska Vasquez) Disposition Is patient prescribed a controlled substance at d/c from ED?: No <Katiuska Vasquez - Last Filed: 11/24/20 18:16> <Freya Will - Last Filed: 11/29/20 00:47> Clinical Impression: Right sided abdominal pain, Colitis, Stenosis of right femoral artery Disposition: HOME SELF-CARE Condition: Stable Instructions (If sedation given, give patient instructions): Colitis (ED) Additional Instructions: Please return to the Emergency Department if symptoms worsen or any other concerns. Take antibiotics as prescribed. Drink plenty of water. Follow-up with Dr. Mackenzie as discussed regarding the narrowing of your blood vessels. Prescriptions: Amoxicillin/Potassium Clav [Augmentin 875-125 Tablet] 1 tab PO BID 5 Days #10 tab Referrals: Carmina Mishra MD [Primary Care Provider] - 1-2 days Freya Mackenzie DO [STAFF PHYSICIAN] - 1-2 days
[2020-11-24 18:01] LABS: Appearance,Urine Clear (Clear); Bilirubin,Urine Negative (Negative); Blood,Urine Negative (Negative); Color,Urine Light Yellow; Glucose,Urine (UA) Negative (Negative); Ketones,Urine Negative (Negative); Leukocyte Esterase,Urine Negative (Negative); Nitrite,Urine Negative (Negative); PH, Urine 5.5 (5.0-8.0); Protein,Urine Negative (Negative); Specific Gravity,Urine 1.019 (1.001-1.035); Urobilinogen,Urine <2.0 mg/dL (<2.0)
[2020-11-24 19:06] VITALS: BP 130/70; PULSE 64; TEMP 98
== END 2020-11-24 18:35 | disposition home or self-care (01) ==
LOC: EC 16:07
DX: K52.9 Noninfective gastroenteritis and colitis, unspecified (principal); I70.201 Unspecified atherosclerosis of native arteries of extremities, right leg; F41.9 Anxiety disorder, unspecified; F32.9 Major depressive disorder, single episode, unspecified; K21.9 Gastro-esophageal reflux disease without esophagitis; G40.909 Epilepsy, unspecified, not intractable, without status epilepticus; Z90.49 Acquired absence of other specified parts of digestive tract; Z86.73 Personal history of transient ischemic attack (TIA), and cerebral infarction without residual deficits; Z79.82 Long term (current) use of aspirin; Z79.899 Other long term (current) drug therapy
CPT/HCPCS: 99284 ×2; 96374 ×2; 96361 ×2; 36415; 93005; 80053; 82150; 83605; 83690; 84484; 85025; 85610; 85730; 81003; 74177; J1885; Q9967

== ENCOUNTER → 2020-11-24 | Outpatient (CLI) | payer MEDICARE, OTHER ==
--- NOTE | 2020-11-24 10:11 | CT ---
EXAMINATION TYPE: CT abdomen pelvis w con DATE OF EXAM: 11/24/2020 HISTORY: Rt sided pain since GB surgery in January 2020 CT DLP: 390mGycm Automated Exposure Control for Dose Reduction was Utilized. CONTRAST: CT scan of the abdomen and pelvis is performed with IV Contrast, patient injected with 100 mL of Isov ue 300. COMPARISON: CT urogram October 20, 2019 FINDINGS: LUNG BASES: Mild bibasilar linear scarring and/or atelectasis. LIVER/GB: Persistent hepatomegaly and prominent right hepatic lobe. Cholecystectomy clips now present . Persistent extrahepatic biliary dilatation measuring up to 14 mm unchanged from prior CT. No new in trahepatic biliary dilatation. PANCREAS: Persistent visualization of pancreatic duct in the pancreatic head not suspiciously dilated and stable. SPLEEN: No significant abnormality is seen. ADRENALS: No significant abnormality is seen. KIDNEYS: No significant abnormality is seen. BOWEL: Oral contrast does not reach colonic level making evaluation of distal bowel slightly suboptim al. There is low-lying cecum into the anterior right pelvis. No suspicious small or large bowel dilat ation. There is moderate prominence of fecal material throughout the transverse left and sigmoid colo n. A few scattered sigmoid colonic diverticula. No CT evidence for acute diverticulitis. There is mil d to moderate wall thickening and mucosal irregularities in the right colon on current study seen in the lateral pelvis and lower abdomen. Mild/moderate wall thickening in the terminal ileum in the righ t pelvis anteriorly. UTERUS/ADNEXA: Anteverted uterus projects to left of midline. Prominent peripheral vessels. Small siz e correlates with patient's postmenopausal age LYMPH NODES: No greater than 1cm abdominal or pelvic lymph nodes are appreciated. OSSEOUS STRUCTURES: Prominent Schmorl node superior L1 endplate. OTHER: Severe mixed plaque of the distal abdominal aorta causes stenosis approaching 50% similar to p rior. More moderate calcified plaque extends into the iliac arterial branch vessels. Current study sh ows significant stenosis measuring suspected between 80 and 90 % in the right common femoral artery a cknowledge 64 due to mixed but predominately noncalcified plaque. Significant narrowing celiac artery at its origin, sagittal image 47 for reference. Correlate clinically. IMPRESSION: 1. Moderate diffuse colonic fecal stasis. No bowel obstruction. 2. Possible mild to moderate right-sided right-sided acute colitis on current study, differential inc ludes infectious and/or inflammatory etiologies. Involvement of the terminal ileum not excluded. 3. Persistent hepatomegaly and prominent right hepatic lobe. Persistent but stable mild to borderline moderate extrahepatic biliary dilatation. 4. [id number] atherosclerotic change with significant stenosis at level of right common femor al artery in the groin, correlate for right lower extremity vascular hypoperfusion symptoms. 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
== END | disposition home or self-care (01) ==
LOC: RADCTMAIN 07:50
PROVIDERS: ATTEND Internal Medicine Gastroenterology
DX: K59.89 Other specified functional intestinal disorders (principal); R16.0 Hepatomegaly, not elsewhere classified; K76.89 Other specified diseases of liver
CPT/HCPCS: 74177; Q9967

== ENCOUNTER → 2020-12-20 | Day surgery (SDC) | payer MEDICARE, OTHER ==
[2020-12-18 12:03] VITALS: BMI 17.2
[~2020-12-20] MED LIST: SODIUM CHLORIDE 0.9% 1,000 ML IV ONE; SODIUM CHLORIDE 0.9% 1,000 ML in EMPTY BAG 1 BAG IV ONE
[2020-12-20 12:52] VITALS: BP 100/55; PULSE 65; RESP 16; TEMP 97.2
== END ==
LOC: CATHCVL 12:01
PROVIDERS: ATTEND Surgery
DX: R10.9 Unspecified abdominal pain (principal); Z53.9 Procedure and treatment not carried out, unspecified reason

== ENCOUNTER 2020-12-22 08:10 | Day surgery (SDC) | payer MEDICARE, OTHER ==
[~2020-12-22 08:10] MED LIST changes: +ALPRAZolam 0.25 MG TAB PO PRN; +ASPIRIN 325 MG TAB PO PRN; +HEPARIN SODIUM,PORCINE 10,000 UNIT in SODIUM CHLORIDE 0.9% 1,000 ML IRRIGATION PRN; +HEPARIN SODIUM,PORCINE 2,500 UNIT in SODIUM CHLORIDE 0.9% 250 ML IRRIGATION PRN; -SODIUM CHLORIDE 0.9% 1,000 ML IV ONE; +ZOLPIDEM 5 MG TAB PO PRN
[2020-12-22 08:30] VITALS: RESP 16; TEMP 97.8
[2020-12-22] MEDS ORDERED: MIDAZOLAM 2 MG/2 ML VIAL IVP ONE (09:05)
[2020-12-22] MEDS ORDERED: LIDOCAINE 1% INJ 10MG/ML (20 ML MDV) SQ ONE (09:07)
[2020-12-22] MEDS ORDERED: IOPAMIDOL-250 100ML BTL INTRAARTER ONE (09:38)
[2020-12-22] MEDS ORDERED: ONDANSETRON 4 MG/2 ML VIAL ONE (10:10)
--- NOTE | 2020-12-22 10:20 | P.OP ---
Date of Procedure: 12/22/20 Description of Procedure: Preoperative diagnosis: [Possible celiac artery stenosis, abdominal pain, abnormal ABIs, bilateral TBI of 0.59] Postoperative diagnosis: Same, no evidence of celiac artery stenosis Procedure: [#1 ultrasound guided left common femoral artery access #2 abdominal aortogram #3 bilateral lower extremity runoffs #4 moderate conscious sedation of 28 minutes] Surgeon: Freya Mackenzie D.O. EBL: [Less than 10 mL] IV fluids: [See records] Urine output: [Not measured] Drains: [None] Complications: [None immediately apparent] Condition: [Stable to recovery] Operative indication and findings: [Lisa is a 70-year-old female who has been having issues with abdominal pain and right upper quadrant and flank pains. Occasionally it is worse after eating although she typically has pain all the time. She underwent imaging which questioned a possible celiac artery narrowing. She is also found to have areas of iliac and femoral atherosclerotic disease. She currently denies any pain in her lower extremities when ambulating.] Procedure in detail: [The patient was taken to the special suite and placed in supine position. Bilateral groins were prepped and draped in usual sterile fashion. A preprocedure timeout was performed, all parties were in agreement. The ultrasound was utilized and the left common femoral artery was identified. The skin overlying was anesthetized 1% lidocaine plain. Using a multipurpose needle, the artery was accessed and using Seldinger technique a 5-Tamazight sheath was placed. Catheters and wires were placed and a pigtail catheter was placed in the descending thoracic aorta at the level of the diaphragm. An angiogram was performed. A lateral angiogram with inspiratory and expiratory phase was performed. The catheter was pulled down to the level of the bifurcation and bilateral lower extremity runoffs were performed. Catheters and wires were removed. The sheath was removed and pressure was held until hemostasis was adequate. Angiographic findings: The aorta appeared normal in course and caliber. On lateral imaging the celiac and superior mesenteric arteries appear patent without any evidence of significant narrowing. The distal aorta is normal in course and caliber. On the right there is atherosclerotic disease of the lateral wall of the common iliac artery but the artery remains widely patent. The internal iliac arteries are patent without significant disease. There is calcific disease in the left common iliac artery. The external and internal iliac arteries are patent without significant disease. On the right common, superficial and deep femoral arteries are patent without significant disease below the knee there is high takeoff of the posterior tibial artery at the level of the knee very diminutive peroneal and a widely patent anterior tibial artery there is a patent anterior tibial and peroneal artery at the level of the ankle again with the diminutive anterior tibial artery. On the left common femoral artery is patent, superficial and profunda are patent without evidence of significant disease. The anterior tibial artery is patent. The tibial peroneal trunk has significant stenosis the posterior tibial and peroneal arteries are patent with diminutive flow. At the level of the ankles, the posterior tibial artery is open via collateral flow anterior tibial artery is patent at the foot.] Plan - Discharge Summary New Discharge Prescriptions: No Action buPROPion XL [Wellbutrin XL] 300 mg PO DAILY Omeprazole [PriLOSEC] 20 mg PO BID LORazepam [Ativan] 0.5 mg PO 0900,1400 Citalopram Hydrobromide [CeleXA] 20 mg PO DAILY Multivitamins, Thera [Multivitamin (formulary)] 1 tab PO DAILY Aspirin EC [Ecotrin Low Dose] 81 mg PO HS Dicyclomine [Bentyl] 20 mg PO QID PRN PRN Reason: IBS levETIRAcetam [Keppra] 750 mg PO QAM Biotin 10,000 mcg PO DAILY traZODone HCL 50 mg PO DAILY@1400 Ondansetron [Zofran] 4 mg PO Q8HR PRN PRN Reason: Nausea Ferrous Sulfate [Feosol] 325 mg PO DAILY levETIRAcetam [Keppra] 1,000 mg PO HS dilTIAZem HCL [Diltiazem HCl] 30 mg PO BID Acetaminophen [Tylenol 8 Hour] 650 mg PO QID PRN PRN Reason: Pain traZODone HCL [Desyrel] 100 mg PO HS Meloxicam [Mobic] 7.5 mg PO DAILY PRN PRN Reason: Pain Loperamide [Imodium] 4 mg PO QID PRN PRN Reason: Diarrhea Discharge Medication List LORazepam [Ativan] 0.5 mg PO 0900,1400 04/04/15 [History] Omeprazole [PriLOSEC] 20 mg PO BID 04/04/15 [History] buPROPion XL [Wellbutrin XL] 300 mg PO DAILY 04/04/15 [History] Citalopram Hydrobromide [CeleXA] 20 mg PO DAILY 01/16/17 [History] Aspirin EC [Ecotrin Low Dose] 81 mg PO HS 03/07/17 [History] Multivitamins, Thera [Multivitamin (formulary)] 1 tab PO DAILY 03/07/17 [History] Biotin 10,000 mcg PO DAILY 12/22/18 [History] Dicyclomine [Bentyl] 20 mg PO QID PRN 12/22/18 [History] levETIRAcetam [Keppra] 750 mg PO QAM 12/22/18 [History] Acetaminophen [Tylenol 8 Hour] 650 mg PO QID PRN 11/24/20 [History] Ferrous Sulfate [Feosol] 325 mg PO DAILY 11/24/20 [History] Ondansetron [Zofran] 4 mg PO Q8HR PRN 11/24/20 [History] dilTIAZem HCL [Diltiazem HCl] 30 mg PO BID 11/24/20 [History] levETIRAcetam [Keppra] 1,000 mg PO HS 11/24/20 [History] traZODone HCL 50 mg PO DAILY@1400 11/24/20 [History] Loperamide [Imodium] 4 mg PO QID PRN 12/18/20 [History] Meloxicam [Mobic] 7.5 mg PO DAILY PRN 12/18/20 [History] traZODone HCL [Desyrel] 100 mg PO HS 12/18/20 [History] Follow up Appointment(s)/Referral(s): Freya Mackenzie DO [STAFF PHYSICIAN] - 2 Weeks (please call Friday to make your appt., office is closed on Fridays (unable to make your appt for you).) Patient Instructions/Handouts: Angiogram (DC) Activity/Diet/Wound Care/Special Instructions: No lifting/pushing/pulling greater than 10 lbs for 3 days. You may shower tomorrow. No soaking in water for 3 days (such as tub). Avoid frequent use of full flight of stairs for 2 days.
--- NOTE | 2020-12-22 11:07 | IR ---
EXAMINATION TYPE: IR angio abdominal w runoff DATE OF EXAM: 12/22/2020 COMPARISON: NONE HISTORY: Fluoroscopy time. Fluoroscopy was provided to the referring clinician of 60 seconds.
[2020-12-22 14:23] VITALS: BP 102/59; PULSE 65
== END 2020-12-22 15:55 | disposition home or self-care (01) ==
LOC: CATHCVL 08:10
PROVIDERS: ATTEND Surgery
DX: R10.9 Unspecified abdominal pain (principal); I70.8 Atherosclerosis of other arteries; I70.209 Unspecified atherosclerosis of native arteries of extremities, unspecified extremity; K52.9 Noninfective gastroenteritis and colitis, unspecified; I95.9 Hypotension, unspecified; F17.200 Nicotine dependence, unspecified, uncomplicated; Z90.49 Acquired absence of other specified parts of digestive tract; Z98.890 Other specified postprocedural states; Z79.82 Long term (current) use of aspirin; Z79.899 Other long term (current) drug therapy
CPT/HCPCS: 36200; 75625; 75716; 76937; C1769 ×3; C1894; J2250; J2405; J2001; Q9966

== ENCOUNTER → 2022-01-15 | Outpatient (CLI) | payer MEDICARE, OTHER ==
--- NOTE | 2022-01-15 19:45 | BD ---
EXAMINATION TYPE: Axial Bone Density DATE OF EXAM: 01/15/2022 COMPARISON: NONE CLINICAL HISTORY: 71 years year old Female. ICD-10 CODE: M81.0 Osteoporsis Height: 4 FT 11 1/2 IN Weight: 96 FRAX RISK QUESTIONS: Alcohol (3 or more units per day): NO Family History (Parent hip fracture): NO Glucocorticoids (More than 3mos): NO (Ex: prednisone, prednisolone, methylprednisolone, dexamethasone, and hydrocortisone). History of Fracture in Adulthood: YES Secondary Osteoporosis: 1. Type 1 Diabetes: NO 2. Hyperthyroidism: NO 3. Menopause before 45: NO 4. Malnutrition: NO 5. Chronic liver disease: NO Rheumatoid Arthritis: YES Current Tobacco Use: YES RISK FACTORS HISTORY OF: Surgery to Spine/Hip(right/left)/Wrist (right/left): NO Family History of Osteoporosis: NO Active: YES Diet low in dairy products/other sources of calcium: NO Postmenopausal woman: YES Take estrogen and/or progesterone medications: NO Lost more than 2 inches in height since high school: YES Frequent falls: NO Poor Health: FAIR Hyperparathyroidism: NO Adrenal Insufficiency: NO MEDICATIONS: Additional Medications: CITALOPRAM, BUPROPION, DILTIAZEM, MIDODRINE, KEPRA, OMEPRAZOLE, LORAZEPAM, TR AZODONE, DICYCLOMINE, LOPERAMIDE, ASPIRIN, ONDANSETRON, TYLENOL Additional History: EXAM MEASUREMENTS: Bone mineral densitometry was performed using the [employer] System. Bone mineral density as measured about the Lumbar spine is: ----- L1-L4(G/cm2): 0.687 T Score Values are as follows: ----- L2: -4.7 ----- L3: -4.2 ----- L4: -4.0 ----- L1-L4: -4.1 Bone mineral density has: DECREASED -1.2 % since study of: 2017 Bone mineral density about the R hip (g/cm2): 0.574 Bone mineral density about the L hip (g/cm2): 0.564 T Score values are as follows: -----R Neck: -3.3 -----L Neck: -3.4 -----R Total: -3.3 -----L Total: -3.6 Bone mineral density has: DECREASED -5.9 % since study of: 2018 FRAX%s: Graph provided illustrates a 31.1 % chance for a major osteoporotic fx and a 19.6 % for hip p robability for fx in 10 years time. IMPRESSION: Osteoporosis (T Score less than -2.5). There is increased fracture risk and therapy is usually indicated based on age. Re-Screen 1-2 years. NOTE: T-SCORE=SD OF THE YOUNG ADULT MEAN.
--- NOTE | 2022-01-16 13:52 | MM ---
Reason for exam: screening (asymptomatic). Last mammogram was performed 2 years and 2 months ago. History: Patient is postmenopausal and has history of other cancer at age 69. Family history of breast cancer in sister. Benign core biopsy of the left breast. Physical Findings: A clinical breast exam by your physician is recommended on an annual basis and results should be correlated with mammographic findings. MG 3D Screening Mammo W/Cad Bilateral CC and MLO view(s) were taken. Prior study comparison: November 11, 2019, bilateral MG 3d diag mammo w/cad [facility]. December 11, 2017, bilateral MG 3d screening mammo w/cad. The breast tissue is heterogeneously dense. This may lower the sensitivity of mammography. There is no discrete abnormality. No significant changes when compared with prior studies. ASSESSMENT: Negative, BI-RAD 1 RECOMMENDATION: Routine screening mammogram of both breasts in 1 year.
== END | disposition home or self-care (01) ==
LOC: RADMAMWWP 16:03
PROVIDERS: ATTEND Family Medicine
DX: Z12.31 Encounter for screening mammogram for malignant neoplasm of breast (principal); M81.0 Age-related osteoporosis without current pathological fracture
CPT/HCPCS: 77063; 77067; 77080

== ENCOUNTER 2023-12-31 07:41 | Day surgery (SDC) | payer MEDICARE, OTHER ==
[~2023-12-31 07:41] MED LIST changes: +ALPRAZolam 0.5 MG TAB PO PRN; -ASPIRIN 325 MG TAB PO PRN; +ASPIRIN 325 MG TAB PO STA; +ATORVASTATIN 80 MG TAB PO STA; +HEPARIN SODIUM,PORCINE (1 ML) 2,500 UNIT in SODIUM CHLORIDE 0.9% 250 ML IRRIGATION PRN; -HEPARIN SODIUM,PORCINE 2,500 UNIT in SODIUM CHLORIDE 0.9% 250 ML IRRIGATION PRN; +NITROGLYCERIN SL TABS 0.4 MG TAB SUBLINGUAL PRN; -SODIUM CHLORIDE 0.9% 1,000 ML in EMPTY BAG 1 BAG IV ONE; -ZOLPIDEM 5 MG TAB PO PRN
[2023-12-31] MEDS: SODIUM CHLORIDE 0.9% 1,000 ML in EMPTY BAG 1 BAG IV SCH (07:58)
[2023-12-31 08:13] VITALS: RESP 18; TEMP 97
[2023-12-31] MEDS ORDERED: VERAPAMIL 2.5 MG/ML 2 ML AMP ONE (08:49)
[2023-12-31] MEDS ORDERED: HEPARIN SODIUM,PORCINE 30 ML 30 ML ONE (08:49)
[2023-12-31] MEDS ORDERED: fentaNYL (PF) 50 MCG/ML 2 ML AMP ONE (08:49)
[2023-12-31] MEDS ORDERED: LIDOCAINE 1% INJ 10MG/ML (20 ML MDV) ONE (08:50)
[2023-12-31] MEDS: MIDAZOLAM 2 MG/2 ML VIAL IVP ONE ×2 (09:25)
[2023-12-31] MEDS: fentaNYL (PF) 50 MCG/ML 2 ML AMP IVP ONE (09:26)
[2023-12-31] MEDS: LIDOCAINE 1% INJ 10MG/ML (30 ML VIAL-PF) SQ ONE (09:32)
[2023-12-31] MEDS: VERAPAMIL SYRINGE (5 MG/10 ML) INTRAARTER ONE (09:32)
[2023-12-31] MEDS: HEPARIN SODIUM,PORCINE 5,000 UNIT/ML 1 ML VIAL IV ONE (09:36)
[2023-12-31] MEDS: IOPAMIDOL-370 100ML BTL INJ ONE (09:41)
[2023-12-31] MEDS: SODIUM CHLORIDE 0.9% 500 ML 500 ML IV ONE (11:24)
[2023-12-31 12:08] VITALS: PULSE 63
--- NOTE | 2023-12-31 12:29 | P.CARDCATH ---
Description of Procedure: PROCEDURES PERFORMED: Left heart catheterization, bilateral coronary angiography, ultrasound guided arterial access INDICATION: Abnormal stress test CONSENT:I have discussed the risks, benefits and alternative therapies for the above-mentioned procedure and for both sedation/analgesia as well as necessary blood product administration, if indicated, as they pertain to this patient. The patient has indicated understanding and acceptance of the risks and procedures discussed. PROCEDURE: After the risks, benefits and alternatives of the above mentioned procedure explained in detail with the patient, informed consent was obtained. Patient was taken to the catheterization lab and prepped and draped in usual fashion. Ultrasound guidance was used to assess for arterial access. 1% lidocaine was used to anesthetize the right radial artery. A 6-Jamaican sheath was placed in the right radial artery using modified Seldinger technique and ultrasound guidance. Left coronary angiography was performed with a 5-Jamaican JL 3.5 catheter and right coronary angiography was performed with a 5-Jamaican FR5 catheter in various views. A 5-Jamaican FR5 catheter was inserted into the left ventricle and pressure measurements were obtained. The right radial sheath was removed and a TR band was placed with hemostasis achieved. The patient to lerated the procedure well. Patient was transported back to the post catheterization holding area in stable condition. Conscious Sedation: Patient was monitored under the direct supervision of myself for conscious sedation using Versed and fentanyl for a total duration of 11 minutes HEMODYNAMICS: Aortic: 138/78 LV: 138/5, LVEDP 17 SELECTIVE CORONARY ARTERIOGRAPHY: LEFT MAIN: The left main is a large caliber vessel which bifurcates into the LAD and circumflex. There is no significant stenosis. LEFT ANTERIOR DESCENDING CORONARY ARTERY: LAD is a large caliber vessel which wraps around to the apex. There is no significant stenosis. The arteries are tortuous. LEFT CIRCUMFLEX CORONARY ARTERY: Left circumflex is a moderate caliber vessel without significant stenosis. RIGHT CORONARY ARTERY: The right coronary artery is a large caliber vessel which gives off a PDA and PLV branch and is the dominant vessel. There are mild coronary artery calcifications with 5% RCA stenosis FINAL IMPRESSION: 1. Relatively normal coronary arteries other than mild 5% RCA stenosis. 2. High normal left sided filling pressures PLAN: 1. Aggressive risk factor modification per most recent ACC/AHA guidelines. 2. Follow-up in the office in 1-2 weeks. Consider discontinuation of antianginal medications pending patient's symptoms.
[2023-12-31 13:14] VITALS: BP 95/47
== END 2023-12-31 13:40 | disposition home or self-care (01) ==
LOC: CATHCVL 07:41
PROVIDERS: ATTEND Internal Medicine
DX: R94.39 Abnormal result of other cardiovascular function study (principal); I73.9 Peripheral vascular disease, unspecified; Z79.01 Long term (current) use of anticoagulants; Z79.899 Other long term (current) drug therapy; Z79.82 Long term (current) use of aspirin
CPT/HCPCS: 93458; 76937; 99152; C1769; C1894; J2250; J1644; J2001; J3010; Q9967